=== PATIENT | female | born 1945 | race Caucasian/White ===

== ENCOUNTER 2020-01-02 09:30 | Outpatient (CLI) | payer MEDICARE, SELFPAY ==
--- NOTE | ~2020-01-02 | US_ITS ---
EXAMINATION: US venous doppler [facility] EXAM DATE: 01/02/2020 10:47 INDICATION: Bilateral leg pain. TECHNIQUE: Multiple grayscale, color flow and Doppler images of the lower extremity deep venous syste ms bilaterally were obtained and reviewed. The exam was reviewed on 01/02/2020. Comparison is made to prior examination from 04/15/2009. FINDINGS: Right side: The right common femoral, femoral and profunda veins demonstrate normal color flow, respi ratory variation, augmentation and compressibility. Compressibility, color flow confirmed within the right popliteal, posterior tibial, peroneal, and greater saphenous veins. Right Standing Venous Mapping: reflux seconds duration; vein size. Greater saphenous origin: 0 seconds; 6.1 mm. Greater saphenous mid thigh:------ 0 seconds; 4.5 mm. Greater saphenous below knee:--- 0 seconds; 2.4 mm. Lesser saphenous proximally:------ 0 seconds; 2.8 mm. Lesser saphenous distally: 0 seconds; 2.3 mm. Right popliteal vein did demonstrate 2 seconds of venous reflux. Left side: The left common femoral, femoral and profunda veins demonstrate normal color flow, respira tory variation, augmentation and compressibility. Compressibility, color flow confirmed within the l eft popliteal, posterior tibial, peroneal, and greater saphenous veins. Left Standing Venous Mapping: reflux seconds duration; vein size. Greater saphenous origin: 0 seconds; 7.3 mm. Greater saphenous mid thigh:------ 0 seconds; 7.1 mm. Greater saphenous below knee:--- 1 seconds; 2.9 mm. Lesser saphenous proximally:------ 0 seconds; 1.8 mm. Lesser saphenous distally: 0 seconds; 2.3 mm. IMPRESSION: 1. No lower extremity deep venous thrombosis bilaterally. 2. Left greater saphenous below knee Venous reflux. 3. Right popliteal venous reflux. Reviewed, dictated and finalized at location A.
== END 2020-01-02 09:31 | disposition home or self-care (01) ==
PROVIDERS: PCP Internal Medicine; Visit Provider Internal Medicine Cardiovascular Disease
DX: M79.605 Pain in left leg (principal); M79.604 Pain in right leg
CPT/HCPCS: 93970

== ENCOUNTER 2020-04-10 14:10 | Outpatient (CLI) | payer MEDICARE, SELFPAY ==
--- NOTE | ~2020-04-10 | MM_ITS ---
EXAMINATION: MM screening [facility] BI w jade HISTORY: Screening mammogram TECHNIQUE: Craniocaudal and mediolateral oblique 3-D tomosynthesis images were obtained and synthetic 2-D images were generated. CAD analysis was submitted and interpreted. COMPARISON: 04/08/2019, 04/05/2018, 01/11/2017 BREAST PARENCHYMAL COMPOSITION: There are scattered areas of fibroglandular density. FINDINGS: There is no evidence of suspicious mass, calcification, or architectural distortion to sugg est malignancy in either breast. There has been no suspicious interval change. IMPRESSION: 1. No mammographic evidence of malignancy. 2. Recommend routine screening mammography in one year. BI-RADS Category 1: Negative Reviewed, dictated and finalized at location A. D [employer] PROFESSIONAL
== END 2020-04-10 14:11 | disposition home or self-care (01) ==
LOC: ANHIMG 14:14
PROVIDERS: PCP Family Medicine; Visit Provider Nurse Practitioner
DX: Z12.31 Encounter for screening mammogram for malignant neoplasm of breast (principal)
CPT/HCPCS: 77063; 77067

== ENCOUNTER 2020-06-15 14:58 | Outpatient (CLI) | payer MEDICARE, SELFPAY ==
--- NOTE | ~2020-06-15 | XR_ITS ---
XR lumbar spine 2-3V DATE: 06/15/2020 15:24 INDICATION: Left lower back pain. Left lateral hip pain. TECHNIQUE: AP, lateral, coned lateral lumbosacral views COMPARISON: None FINDINGS: Diffuse osteopenia. There is grade 1 anterolisthesis at L4-5 due to prominent degenerative change at the apophyseal joint s. Moderate degenerative disc disease at L1-2, L2-3. Moderately severe degenerative disc disease at L4-5 and L5-S1. No fracture or bone destruction is evident. The lumbar pedicles are intact. The sacroiliac joints are unremarkable. IMPRESSION: Diffuse osteopenia Multilevel degenerative disc disease, most pronounced at L5-S1 Degenerative change at the apophyseal joints, with associated grade 1 anterolisthesis at L4-5 Reviewed, dictated and finalized at location A. DRIER IMPRESSION: Diffuse osteopenia Multilevel degenerative disc disease, most pronounced at L5-S1 Degenerative change at the apophyseal joints, with associated grade 1 anterolis thesis at L4-5
--- NOTE | ~2020-06-15 | XR_ITS ---
XR hip LT min 2V DATE: 06/15/2020 15:24 INDICATION: Left lateral hip pain TECHNIQUE: AP and lateral views COMPARISON: None FINDINGS: There is joint space narrowing and degenerative spurring of the left hip joint consistent w ith moderately severe left hip osteoarthritis. No fracture or dislocation, avascular necrosis or bone destruction is detected. The pubic symphysis a nd left sacral iliac joint are intact. IMPRESSION: Moderately severe left hip osteoarthritis Reviewed, dictated and finalized at location A. E TENDER
== END 2020-06-15 14:59 | disposition home or self-care (01) ==
LOC: CHSIMG 15:01
PROVIDERS: PCP Family Medicine; Visit Provider Nurse Practitioner Family
DX: M25.552 Pain in left hip (principal); M54.5 Low back pain
CPT/HCPCS: 72100; 73502

== ENCOUNTER 2020-06-16 12:54 | Outpatient (RCR) | payer MEDICARE, SELFPAY ==
--- NOTE | 2020-06-16 15:52 | PTOPEVAL ---
Thank you for referring Narcisa Panchal to [facility].? The patient is scheduled to be seen for therapy? _3___x/week for 12 visits. Please review, sign, date and return this plan of care DAVID. I agree with and certify that the following plan of care is medically necessary. Referring Physician Date Admitting Provider: Attending Provider: Shakila Salomon NP Referring Provider: *PT Outpatient Evaluation Start: 06/16/20 13:02 Freq: Status: Active Protocol: Document 06/16/20 13:03 ACR (Rec: 06/16/20 14:52 [id number]) Therapy Assessment Status Assessment Status Assessment Status Evaluation Evaluation Information Problem Diagnosis L hip pain Onset 04/15/20 Subjective Information Patient states about 2 months Query Text:As Reported By Patient/ ago she started having Family difficulty going from sit to stand where her legs were stiff, but once she got walking she would be okay. She states that she believes her hips are not straight. After awhile she went to the MD and got X-ray which was positive for moderate to severe osteoarthritis. Patient states she walked quite a bit before her hip started to bother her . Other than that, the hip pain has not hindered her quality of life. She states that getting in and out of the car and navigating the stairs is difficult. Patient states the pain wakes her up at night . Prior Level of Function Activity Level (Last 3 Months) Occupation retired Hand Dominance Right Activity of Daily Living Ability Independent Indoor/Home Mobility Independent Community Mobility Independent Stairs Ability Independent Functional Cognition (Planning, Shopping Independent , Taking Medications) Cooking Yes Cleaning Yes Laundry Yes Shopping Yes Driving Yes Pain Assessment Timing of Pain Assessment Timing of Pain Assessment Assessment Pain Scale Pain Scale Used Numeric (1 - 10) Self Report Pain Assessment Left Hip(s) Reported Pain Level 8 Pain Description
--- NOTE | 2020-07-10 11:39 | PTOPEVAL ---
Thank you for referring Narcisa Panchal to [facility].? The patient is scheduled to be seen for therapy? ____x/week for ___ weeks. Please review, sign, date and return this plan of care DAVID. I agree with and certify that the following plan of care is medically necessary. Referring Physician Date Admitting Provider: Attending Provider: Shakila Salomon NP Referring Provider: LydiaPT Outpatient Evaluation Start: 06/16/20 13:02 Freq: Status: Active Protocol: Document 07/10/20 10:57 ACR (Rec: 07/10/20 11:24 ACR [id number]) Therapy Assessment Status Assessment Status Assessment Status Discharge Pain Assessment Timing of Pain Assessment Timing of Pain Assessment Pre-Treatment Pain Scale Pain Scale Used Numeric (1 - 10) Self Report Pain Assessment Left Hip(s) Reported Pain Level 2 Greatest Pain Intensity 4 Pain Score Pain Score 2: Self Report Interventions Used Interventions Used By Clinicians Activity or ADL's,Education, Electrical Stimulation, Exercise,Heat Lower Extremity Range of Motion Hip Range of Motion Left Hip Flexion Range of Motion - Active 115 Hip Abduction Range of Motion - Active 10 Lower Extremity Muscle Strength Testing Hip Strength Left Hip Flexion Strength 4- Good - Hip Extension Strength 4+ Good + Hip Abduction Strength 4+ Good + Right Hip Flexion Strength 4+ Good + Hip Abduction Strength 4+ Good + Hip Adduction Strength 4+ Good + Gait Assessment Gait Assessment Additional Ambulation Comments Patient ambulates with antalgia, decreased trunk rotation, decreased heel strike on the L, and decreased marilin after 500 ft. 6 Minute Walk Total Distance (feet) 1,000 6 Minute Walk Gait Speed Score (feet/ 2.77 second) General Exercise General Exercises Exercise Description -HS stretch x 2 minutes Query Text:Record Sets, Reps, bilateral Resistance, and Position -piriformis stretch x 2 minutes bilateral -hip extension and abduction x 25 bilateral -clamshells x 25 bilateral -tandem stance on foam x 2 minutes bilateral -squats x 20 - bridges x 15 - supine hip abduction x 15 B Modalities Electrical Stimulation Left Hip Stimulation Type Premodulated In Conjunctions With Hot Pack Patient Positio
== END 2020-07-10 13:36 | disposition home or self-care (01) ==
LOC: CHSPT 12:54
PROVIDERS: PCP Nurse Practitioner Family; Visit Provider Nurse Practitioner Family
DX: M25.552 Pain in left hip (principal); M54.30 Sciatica, unspecified side
CPT/HCPCS: 97014; 97110; 97140; 97161; G0283

== ENCOUNTER 2020-08-17 10:29 | Outpatient (CLI) | payer MEDICARE, SELFPAY ==
--- NOTE | ~2020-08-17 | XR_ITS ---
EXAMINATION: XR chest 2V DATE: 08/17/2020 11:14 INDICATION: Atrial fibrillation. Preop. TECHNIQUE: Frontal and lateral views of the chest were obtained. COMPARISON: Chest 2 views 04/15/2009 FINDINGS: There is no pneumonia, pleural effusion, or pneumothorax. Cardiomegaly is noted. IMPRESSION: 1. Cardiomegaly. Reviewed, dictated and finalized at location A. IMPRESSION: 1. Cardiomegaly.
--- NOTE | 2020-08-17 10:35 | ECG_ITS ---
Measurements Intervals [place] Rate: 67 P: [place]: 0 QRS: 102 QRSD: 90 T: 79 QT: 425 QTc: 449 Interpretive Statements ATRIAL FIBRILLATION ANTEROSEPTAL INFARCT, AGE INDETERMINATE BASELINE WANDER- II, III, AVR, AVL, AVF ABNORMAL ECG Electronically Signed On 08-17-2020 11:02:53 CDT by Serjio Valdovinos D.O.
[2020-08-17 10:49] LABS: Basophils Absolute Auto 0.07 K/mm3 (0.00-0.10); Basophils Percent Auto 1.1 % (0.0-1.0); Eosinophils Absolute Auto 0.13 K/mm3 (0.02-0.50); Hematocrit 40.3 % (35.0-42.0); Immature Granulocyte Absolute 0.02 K/mm3 (0.00-0.00); Immature Granulocyte Percent A 0.3 % (0.0-0.0); Lymphocytes Absolute Auto 1.93 K/mm3 (1.10-4.50); Lymphocytes Percent Auto 30.2 % (18.0-42.0); Mean Corpuscular HGB Conc 32.3 g/dL (32.0-36.0); Mean Corpuscular Hemoglobin 30.7 pg (27.0-31.0); Mean Platelet Volume 11.1 fl (9.2-11.8); Monocytes Absolute Auto 0.69 K/mm3 (0.10-0.90); Monocytes Percent Auto 10.8 % (2.0-11.0); Neutrophils Absolute Auto 3.6 K/mm3 (1.7-7.2); Neutrophils Percent Auto 55.6 % (50.0-70.0); Platelet Count Result 184 K/mm3 (150-420); Red Blood Count 4.24 M/mm3 (4.20-5.40); Red Cell Distribution Width 14.1 % (11.6-14.4); White Blood Count 6.4 K/mm3 (4.8-10.8)
[2020-08-17 10:50] LABS: Appearance Urine Clear (Clear); Bilirubin Urine Negative (Negative); Color Urine Yellow (Yellow); Glucose Urine UA Negative (Negative); Ketones Urine Negative (Negative); Leukocyte Esterase Ur Negative LEU/UL (Negative); Nitrate Urine Negative (Negative); Protein Urine Negative (Negative); Urobilinogen Urine 0.2 mg/dL (0.2-1.0); pH Urine 5.5 (5.0-8.0)
[2020-08-17 11:12] LABS: INR 1.2; Prothrombin Time 12.4 Seconds (9.50-12.10)
[2020-08-17 11:21] LABS: Add Urine Microscopic? YES; Blood Urine Trace-Intact (Negative); RBC Urine None seen /hpf (0-2); Squamous Epithelial Cell Urine Rare /hpf (Few); WBC Urine None seen /hpf (0-3)
[2020-08-17 11:22] LABS: Bacteria Urine None seen /hpf
[2020-08-17 12:08] LABS: Alanine Aminotransferase 17 U/L (14-59); Albumin Level 3.7 g/dL (3.4-5.0); Alkaline Phosphatase 89 U/L (46-116); Anion Gap 8 mmol/L (8-16); Aspartate Amino Transferase 15 U/L (15-37); Bilirubin,Total 0.9 mg/dL (0.00-1.00); Blood Urea Nitrogen 19 mg/dL (7-18); Calcium 9.1 mg/dL (8.5-10.1); Carbon Dioxide 27 mmol/L (21-32); Chloride 107 mmol/L (98-108); Cholesterol 113 mg/dL (0-200); Estimated Glomerular Filt Rate 52; Glucose 81 mg/dL (70-99); HDL Direct 52 mg/dL (40-60); LDL Cholesterol Calculated 42 mg/dL (<130); Osmolality Calculated 295 mOsm/kg (285-295); Potassium 4.5 mmol/L (3.5-5.1); Sodium 142 mmol/L (136-145); Total Protein 7.2 g/dL (6.4-8.2); Triglycerides 93 mg/dL (0-150)
== END 2020-08-17 10:30 | disposition home or self-care (01) ==
LOC: CHSLAB 10:35
PROVIDERS: PCP Family Medicine; Visit Provider Nurse Practitioner Family
DX: E78.5 Hyperlipidemia, unspecified (principal); Z01.818 Encounter for other preprocedural examination; I48.20 Chronic atrial fibrillation, unspecified
CPT/HCPCS: 36415; 71046; 80053; 80061; 81001; 85025; 85610; 93005

== ENCOUNTER 2020-09-14 09:43 | Outpatient (CLI) | payer MEDICARE, SELFPAY ==
[2020-09-14 11:03] LABS: Add Urine Microscopic? NO; Appearance Urine Clear (Clear); Bilirubin Urine Negative (Negative); Blood Urine Negative (Negative); Color Urine Straw (Yellow); Glucose Urine UA Negative (Negative); Ketones Urine Negative (Negative); Leukocyte Esterase Ur Negative LEU/UL (Negative); Nitrate Urine Negative (Negative); Protein Urine Negative (Negative); Specific Grav Ur 1.008 (1.001-1.035); Urobilinogen Urine Negative mg/dL (<2.0)
[2020-09-14 11:11] LABS: INR 1.3; Prothrombin Time 16.6 Seconds (11.1-14.7)
[2020-09-14 11:12] LABS: Partial Thromboplastin Time 32.8 SECONDS (22.3-36.8)
[2020-09-14 11:18] LABS: Urine Cotinine NEGATIVE
[2020-09-14 11:28] LABS: Hemoglobin A1C 5.8 % (<5.7)
== END 2020-09-14 09:44 | disposition home or self-care (01) ==
LOC: ANHSURGERY 09:47
PROVIDERS: PCP Family Medicine; Visit Provider Orthopaedic Surgery
DX: M16.12 Unilateral primary osteoarthritis, left hip (principal); Z01.818 Encounter for other preprocedural examination
CPT/HCPCS: 80307; 81003; 83036; 85610; 85730; 86850; 86900; 86901; 87081

== ENCOUNTER → 2020-09-19 03:05 | Outpatient (CLI) | payer MEDICARE, SELFPAY ==
[2020-09-19 19:46] LABS: SARS-CoV-2 RNA PCR Negative
== END ==
PROVIDERS: PCP Family Medicine; Visit Provider Orthopaedic Surgery
DX: Z01.812 Encounter for preprocedural laboratory examination (principal); Z20.822 Contact with and (suspected) exposure to COVID-19
CPT/HCPCS: C9803; U0003; U0005

== ENCOUNTER 2020-09-24 13:51 | Observation (INO) | payer MEDICARE, SELFPAY ==
[2020-09-14 10:16] VITALS: BP 148/70; PULSE 58; RESP 18; TEMP 36.7; O2SAT 96; BMI 29.9
[2020-09-23] VITALS (14 sets, daily range): BP systolic 116–145; BP diastolic 41–67; PULSE 54–80; RESP 10–18; TEMP 35.7–36.6; O2SAT 94–100
--- NOTE | 2020-09-23 06:46 | WPDANESEPPF ---
Anes - Initial Pre Proc Eval Procedure: Operation Date: 09/23/20 07:30 Proposed Procedures p Left Total Hip Arthroplasty - Morro Mitchell MD Date/Time: 09/23/20 06:46 Surgeon: Morro Mitchell MD Pre Op Diagnosis: left hip DJD Patient Data Age: 74 Gender: F Height: 5 ft 6 in Weight: 82.5 kg Last Vital Signs Temp 36.7 C 09/14/20 10:16 Pulse 58 L 09/14/20 10:16 Resp 18 09/14/20 10:16 BP 148/70 H 09/14/20 10:16 Pulse Ox 96 09/14/20 10:16 Allergies Allergy/AdvReac Type Severity Reaction Status Date / Time Sulfa (Sulfonamide Allergy Unknown Hives Verified 09/23/20 06:08 Antibiotics) Sulfonamides Allergy Intermediate Hives Uncoded 09/17/20 10:47 Home Medications Medication Instructions Recorded Confirmed Type cholecalciferol (vitamin D3) 1,250 50,000 unit PO WEEKLY #7 tablet 06/03/20 09/23/20 Rx mcg (50,000 unit) tablet cetirizine 10 mg capsule 10 mg PO DAILY PRN 07/07/20 09/23/20 History zinc 50 mg tablet 50 mg PO DAILY 07/07/20 09/23/20 History magnesium 500 mg tablet 15 mg PO DAILY 07/08/20 09/23/20 History acetaminophen [Tylenol Extra 1,000 mg PO Q6H PRN 09/14/20 09/23/20 History Strength] atorvastatin 20 mg PO HS 09/14/20 09/23/20 History cran-C-B.coag-FOS-L.acid-L.rha 1 cap PO QAM 09/14/20 09/23/20 History [Probiotic Plus and Cranberry] metoprolol tartrate 25 mg PO HS 09/14/20 09/23/20 History ydgfchul-yeo-tyvm-FA-lutein 1 tablet PO QAM 09/14/20 09/23/20 History [Multivitamin Women 50 Plus] omega-3 fatty acids-vitamin E 1 cap QAM 09/14/20 09/23/20 History [Fish Oil] rivaroxaban [Xarelto] 20 mg HS 09/14/20 09/23/20 History Patient hx anesthesia problems: none Family hx anesthesia problems: none PMFSH Past Medical History Medical History Atrial fibrillation, chronic DVT (deep venous thrombosis) Hyperlipidemia Left hip pain Osteoporosis Weight gain Surgical History Surgical History History of hysterectomy Family History Family History Other FH: kidney cancer Heart disease Social History Social History Second hand tobacco smoke exposure: No Alcohol intake: never Substance use: never Substance use type: does not use Gender identity (if verbalized by the patient): Female Spiritual care concerns: No Anes - Eval Final PreProcedure Day of Procedure 09/23/20 06:46 Patient weight: overweight Heart: irregular rhythm Lungs: clear to auscultation Airway: Mallampati scale class II Neurological: alert and oriented Last oral intake: >/= 8 hours ASA classification: III Emergent: no Anesthetic plan: proceed Anesthesia type and monitoring: general ETT and standard monitoring Informed Consent: The patient's anesthetic plan and its attendant risks and benefits were discussed with the patient/family/POA. Questions were solicited and answers provided to the satisfaction of the patient/family/POA.
[2020-09-23] MEDS: ACETAMINOPHEN 500 MG TABLET 1000 MG PO (06:47)
[2020-09-23] MEDS: TRANEXAMIC ACID 1,000MG/ISO100 1,000 MG/100 ML BAG 200 MG IVPB (06:48)
[2020-09-23] MEDS: LACTATED RINGERS 1,000 ML 30 ML IV CONT ×2 (06:52→10:15)
--- NOTE | 2020-09-23 07:26 | WPDHPUPDATE1 ---
History and Physical Update Update Date/Time: 09/23/20 07:26 History and Physical has been reviewed, including an updated exam of the patient. There are NO changes in the patient's condition. Risks, benefits, and alternatives have been discussed and questions answered. Patient agrees to proceed with procedure.
[2020-09-23] MEDS: ceFAZolin 2 GM/D5W 50 ML 2 GM/50 ML BAG IVPB ×2 (07:37→15:33)
--- NOTE | 2020-09-23 10:23 | SUR.PHASEI ---
PORTABLE XRAY DONE AT BEDSIDE OF LEFT HIP.
--- NOTE | 2020-09-23 10:27 | PM.PROC ---
Procedure Note - Detailed Date of procedure: 09/23/20 Pre-op diagnosis: left hip DJD LEFT HIP DJD Post-op diagnosis: same Procedure performed: LEFT REYNA Description of procedure: THE PATIENT WAS TAKEN TO THE OPERATING ROOM IN STABLE CONDITION. SHE WAS PLACED IN THE LATERAL DECUBITUS AND THE LEFT LOWER EXTREMITY WAS PREPPED AND DRAPED IN THE STERILE FASHION. INCISION WAS MADE IN THE POSTERIOR LATERAL SIDE OF THE HIP, DOWN TO THE FASCIA LAYER. THE FASCIA WAS INCISED. THE HIP WAS EXPOSED. THE SHORT EXTERNAL ROTATORS WERE EXPOSED AND THE SCIATIC NERVE WAS VISUALIZED. THE CAPSULE WAS INCISED EXPOSING THE HIP JOINT. THE HIP WAS DISLOCATED. AN OSTEOTOMY WAS MADE TO THE FEMORAL NECK ABOUT 1 CM PROXIMAL TO THE LESSER TROCHANTER. THE ACETABULUM WAS EXPOSED. THERE WAS SEVERE DJD SEEN. THE ACETABULUM WAS REAMED TO 49 MM. A 49 MM TRIAL WAS PLACED IN 35 DEG OF ABDUCTION AND ANTEVERSION WAS IN ALIGNMENT WITH THE TRANS ACETABULAR LIGAMENT. THE FIT WAS EXCELLENT. THE TRIAL WAS REMOVED. A 50 MM BIOMET G7 COMPONENT WAS THEN TAPPED IN TO PLACE IN 35 DEG OF ABDUCTION AND ANTEVERSION IN ALIGNMENT WITH THE TRANSVERSE ACETABULAR LIGAMENT. THE ACETABULAR LINER WAS PLACED AND CHECKED FOR STABILITY. NEXT THE FEMUR WAS PREPARED WITH INITIAL CANAL FINDER THEN SEQUENTIAL BROACHING TILL AN 16 BROACH FIT WELL IN 15 OF ANTE VERSION. A -3 HIGH OFFSET NECK WITH 36 MM HEAD TRIAL WAS PLACED. THE YAHIR TEST WAS EXCELLENT AND THE STABILITY IN FLEXION AND ROTATION WAS EXCELLENT. LEG LENGTHS WERE GROSSLY EQUAL. TRIALS WERE REMOVED. A BIOMET TAPERLOC 16 STEM WAS PLACED WITH A HIGH OFFSET NECK. THE FIT WAS EXCELLENT IN 15 DEG OF ANTEVERSION. A -3 CERAMIC 36 MM FEMORAL HEAD WAS PLACED. THE HIP WAS TRIALED AND THE STABILITY WAS EXCELLENT WERE THE LEG LENGTHS AND THE SCHUK TEST. THE WOUND WAS IRRIGATED WITH STERILE BETADINE AND WATER FOR 3 MIN. THEN WASHED AGAIN. THE CAPSULE AND THE EXTERNAL ROTATORS WERE APPROXIMATED WITH NUMBER 1 VICRYL. THE FASCIA WITH No 2 QUIL AND THE SUB CUTANEOUS LAYER WITH 2-0 ABSORBABLE SUTURE WITH A RUNNING 3-0 SUBCUTICULAR LAYER WELL. DERMABOND WAS PLACED AND STERILE DRESSING WAS APPLIED. PATIENT WAS PLACED BACK ON TO THE SUPINE POSITION AND WAS EXTUBATED. Anesthesia: GETA Surgeon: Morro Mitchell MD Estimated blood loss (mL): 200 Drains: No Complications: No immediate complications Condition: stable Disposition: PACU
[2020-09-23] MEDS: fentaNYL CITRATE INJ (*CRX) 100 MCG/2 ML VIAL 25 MCG IV PUSH (11:09)
[2020-09-23] MEDS: ONDANSETRON INJ 4 MG/2 ML VIAL IV PUSH ×2 (12:08→15:54)
--- NOTE | 2020-09-23 12:15 | ADMGEN ---
This patient, Narcisa Panchal, was admitted to -. Patient/family oriented to hospital policies and general routines including ID bracelet, bed and alarms, visiting hours, pain management, procedures, bathroom and other care routines, personal items, smoking policy, room service/diet, and visiting hours. Information on how to activate the Rapid Response Team has been discussed. Patient/Family are encouraged to report perceived risks to care and to ask questions if they do not understand what they are told or what they should do.
[2020-09-23] MEDS: KCL 20 MEQ/D5/0.45% SOD CHL 1,000 ML 80 ML IV CONT (12:18)
[2020-09-23 13:29] LABS: Hemoglobin 11.7 g/dL (12.0-15.0)
[2020-09-23] MEDS: KETOROLAC 15 MG/ML VIAL (*BKC) IV PUSH ×2 (13:31→18:13)
--- NOTE | 2020-09-23 14:00 | WPDCN ---
Assessment and Plan Assessment and plan (1) Degenerative joint disease of left hip: Qualifiers: Osteoarthritis type: primary Qualified Code(s): M16.12 - Unilateral primary osteoarthritis, left hip Code(s): M16.12 - Unilateral primary osteoarthritis, left hip Status: Acute Assessment and Plan: Postoperative day 0, status post elective left total hip arthroplasty. Wound care and pain control will be deferred to Dr. Mitchell as well as DVT prophylaxis. PT/OT consulted. Fall precautions initiated. Check CBC and BMP in a.m. (2) Chronic atrial fibrillation: Code(s): I48.20 - Chronic atrial fibrillation, unspecified Status: Acute Assessment and Plan: No acute issues with rate or rhythm. Continue metoprolol for rate control. (3) Current use of supervisor intermediates anticoagulation: Code(s): Z79.01 - intermodal dispatcher (current) use of anticoagulants Status: Acute Assessment and Plan: Resume rivaroxaban when okay with Dr. Mitchell. (4) Hypertension: Code(s): I10 - Essential (primary) hypertension Status: Acute Assessment and Plan: Blood pressures were reviewed and they are stable. Resume metoprolol and monitor blood pressures daily. (5) Hyperlipidemia: Code(s): E78.5 - Hyperlipidemia, unspecified Status: Chronic Assessment and Plan: Continue statin and check LFTs in a.m. Additional Plan Thank you for allowing us to participate in this patient's care. Please do not hesitate to contact us with any questions. Supervising physician for this medical consultation is Dr. Aleksandr Zhong. HPI Data of Consult Date/Time: 09/23/20 14:00 Requesting Physician: Morro Mitchell MD Primary Care Provider: Bryce Valdes MD Consult Narrative Reason for consult: Postoperative medical management. Narrative: This is a 74-year-old female with left hip degenerative joint disease status post lack of left total hip arthroplasty whom the hospitalist service has been consulted for management of her medical conditions. In addition to degenerative joint disease her medical history is significant for atrial fibrillation on long-term anticoagulation, hypertension, hyperlipidemia, depression, and history of stroke without residual deficits. She has had pain in that left hip for quite some time, not amenable to conservative outpatient treatment, and thus she elected for replacement today. Her surgery was performed under general anesthesia with no immediate complications documented an estimated blood loss of 200 mL. Postoperatively she has had quite a bit of nausea and some vomiting but was able to hold down clear liquids this evening. She continues to have some mild nausea. Her pain is been pretty well controlled and she has been up to the chair and with a walker and thinks she did pretty well. At the time my evaluation she has no complaints and she specifically denies fever, chills, sweats, chest pain, and shortness of breath. She also denies paresthesias, skin color, and temperature changes distal to the surgical site. On discharge she will return home in her eldest son will be helping her out. Review of Systems Review of Systems: Narrative: Twelve systems were reviewed with pertinent positives and negatives as per HPI. No fever, chills, or sweats. No recent cold or flu symptoms. She denies exposure to those positive for COVID-19. Reports a remote history of DVT. Except as documented, all other systems were reviewed and are negative. [facility] Past Medical History Medical History Cerebrovascular accident (2008) No residual deficit. Chronic atrial fibrillation Current use of supervisor intermediates anticoagulation Degenerative joint disease History of deep venous thrombosis Hyperlipidemia Hypertensi
--- NOTE | 2020-09-23 14:07 | PCOTNOTE ---
OT evaluation attempted. Patient severely nauseated and unable to complete evaluation at this time. Will attempt at later time when patient medically appropriate
[2020-09-23] MEDS: DOCUSATE SODIUM 100 MG CAPSULE PO (16:41)
[2020-09-23] MEDS: METOPROLOL TARTRATE 25 MG TABLET PO (20:26)
[2020-09-23] MEDS: ATORVASTATIN 20 MG TABLET PO (20:26)
[2020-09-23] MEDS: FAMOTIDINE 20 MG TABLET PO (20:26)
[2020-09-24] VITALS (7 sets, daily range): BP systolic 107–142; BP diastolic 47–56; PULSE 59–77; RESP 16–18; TEMP 36.4–37; O2SAT 92–96
--- NOTE | ~2020-09-24 | XR_ITS ---
EXAMINATION: XR hip LT 1V DATE: 09/23/2020 10:27 INDICATION: Total left hip arthroplasty. Postop. TECHNIQUE: A single view of left hip was obtained. COMPARISON: Left hip radiographs 09/17/2020 FINDINGS: There is a total left hip arthroplasty in near-anatomic alignment. No fracture. There is ga s in the soft tissues, consistent with recent surgery. IMPRESSION: 1. Total left hip arthroplasty in near-anatomic alignment. Reviewed, dictated and finalized at location A.
[2020-09-24] MEDS: ceFAZolin 2 GM/D5W 50 ML 2 GM/50 ML BAG IVPB ×2 (00:04→09:19)
[2020-09-24] MEDS: KETOROLAC 15 MG/ML VIAL (*BKC) IV PUSH ×3 (00:40→14:05)
[2020-09-24] MEDS: HYDROcodone/acetaminophen (*CRX) 7.5-325 MG TABLET 1 TAB PO (04:20)
[2020-09-24 05:33] LABS: Basophils Percent Auto 0.4 % (0.2-1.2); Eosinophils Percent Auto 0.1 % (0-4.4); Hemoglobin 10.6 g/dL (12.0-15.0); Immature Granulocyte Absolute 0.03 K/mm3 (0.00-0.031); Immature Granulocyte Percent A 0.3 % (0-0.5); Lymphocytes Absolute Auto 1.65 K/mm3 (0.9-3.2); Lymphocytes Percent Auto 16.1 % (18.3-44.2); Mean Corpuscular HGB Conc 32.1 g/dl (32-36); Mean Corpuscular Hemoglobin 30.6 pg (26-34); Mean Corpuscular Volume 95.4 fl (80-100); Mean Platelet Volume 11.8 fl (7.4-10.4); Monocytes Absolute Auto 1.3 K/mm3 (0.1-0.6); Monocytes Percent Auto 12.4 % (2.6-8.5); Neutrophils Absolute Auto 7.3 K/mm3 (1.3-6.7); Neutrophils Percent Auto 70.7 % (45.5-73.1); Platelet Count Result 135 k/mm3 (150-375); Red Blood Count 3.46 M/mm3 (4.2-5.4); White Blood Count 10.3 K/mm3 (4.5-10.0)
[2020-09-24 05:50] LABS: Alanine Aminotransferase 11 U/L (4-35); Albumin Level 3.2 g/dL (3.5-5.1); Alkaline Phosphatase 57 U/L (38-126); Anion Gap 7 mmol/L (8-16); Aspartate Amino Transferase 26 U/L (14-36); Bilirubin,Total 1.2 mg/dL (0.2-1.3); Blood Urea Nitrogen 16 mg/dL (7-17); Calcium 8.4 mg/dL (8.4-10.2); Carbon Dioxide 23 mmol/L (22-30); Chloride 108 mmol/L (98-107); Estimated CRCL calculation 48 ml/min; Estimated Glomerular Filt Rate 54; Glucose 124 mg/dL (65-105); Magnesium 1.6 mg/dL (1.6-2.3); Potassium 4.2 mmol/L (3.4-5.0); Sodium 138 mmol/L (137-145)
--- NOTE | 2020-09-24 07:57 | WPDANESPN ---
Anes - Prog Note Post-Op Date/Time: 09/24/20 07:57 Cardiovascular status: normal Respiratory status: normal Airway patency: baseline Mental status: baseline Post-Op hydration status: normal Vital Signs: Last Vital Signs Temp 37.0 C 09/24/20 04:15 Pulse 59 L 09/24/20 04:15 Resp 16 09/24/20 04:15 BP 114/47 L 09/24/20 04:15 Pulse Ox 95 09/24/20 04:15 Pain Score (VAS): 07/01 I/O: Intake & Output 09/23/20 09/23/20 09/24/20 15:59 23:59 07:59 Intake Total 2049 290 1250 Output Total 800 350 Balance 2050 -510 900 Laboratory Tests 09/24/20 04:44 09/24/20 04:44 09/23/20 09/24/20 09/24/20 13:07 04:44 04:44 WBC 10.3 H RBC 3.46 L Hgb 11.7 L 10.6 L Hct 36.0 L 33.0 L MCV 95.4 MCH 30.6 MCHC 32.1 RDW 14.0 Plt Count 135 L MPV 11.8 H Immature Gran % (Auto) 0.3 Neut % (Auto) 70.7 Lymph % (Auto) 16.1 L [place] % (Auto) 12.4 H Eos % (Auto) 0.1 Baso % (Auto) 0.4 Lymph # (Auto) 1.65 [place] # (Auto) 1.3 H Eos # (Auto) 0.0 Baso # (Auto) 0.0 Abs Immat Gran (auto) 0.03 Absolute Neuts (auto) 7.3 H Absolute Nucleated RBC 0.0 Nucleated RBC % 0.0 Sodium 138 Potassium 4.2 Chloride 108 H Carbon Dioxide 23 Anion Gap 7 L BUN 16 Creatinine 1.00 Estim Creat Clear Calc 48 Estimated GFR 54 L Glucose 124 H Calcium 8.4 Magnesium 1.6 Total Bilirubin 1.2 Direct Bilirubin 0.0 AST 26 ALT 11 Alkaline Phosphatase 57 Total Protein 6.0 L Albumin 3.2 L Post-procedural complaints: nausea and vomiting Patient Feedback: Patient satisfied with anesthetic care.
[2020-09-24] MEDS: ONDANSETRON INJ 4 MG/2 ML VIAL IV PUSH ×2 (09:16→14:05)
[2020-09-24] MEDS: DOCUSATE SODIUM 100 MG CAPSULE PO ×2 (09:19→17:03)
[2020-09-24] MEDS: ZINC SULFATE 220 MG CAPSULE PO (09:19)
[2020-09-24] MEDS: FAMOTIDINE 20 MG TABLET PO ×2 (09:19→20:27)
--- NOTE | 2020-09-24 09:20 | PM.PNORT ---
Progress Note: A&P Assessment and Plan (1) S/P total hip arthroplasty: Qualifiers: Laterality: left Qualified Code(s): Z96.642 - Presence of left artificial hip joint Code(s): Z96.649 - Presence of unspecified artificial hip joint Status: Acute Assessment and Plan: POD #1: Left REYNA Continue PT/OT. WBAT. Walker. Pain control. Ice lateral hip. Continue DVT prophylaxis. SCDs. Incentive Spirometry. Monitor dressing. Change prior to discharge. Dispo: Home with Home Health pending progress with PT/OT. (2) Nausea: Code(s): R11.0 - Nausea Status: Acute Assessment and Plan: Antiemetic PRN Subjective Subjective Date/Time Seen: 09/24/20 09:20 POD #1: Left REYNA Complaints of some nausea. Decreased appetite. Pain well controlled. Review of Systems Constitutional: Constitutional: Denies chills, Denies fatigue, Denies fever(s), Denies night sweats and Denies weakness Cardiovascular: Cardiovascular: Denies chest pain, Denies lightheadedness, Denies palpitations and Denies dyspnea Respiratory: Respiratory: Denies cough, Denies dyspnea and Denies wheezing Gastrointestinal: Gastrointestinal: Denies abdominal pain, Denies diarrhea, Reports nausea and Denies vomiting Musculoskeletal: Musculoskeletal: Reports arthralgias (left hip ), Reports joint swelling (left hip ) and Denies numbness Neurologic: Denies numbness and Denies weakness Endocrine: Endocrine: Denies fatigue and Denies palpitations Allergic/Immunologic: Allergic/Immunologic: Denies wheezing Exam Const: General: comfortable and no acute distress Resp: Effort & Inspection: normal respiratory effort Cardio: Rate: regular rate Rhythm: regular rhythm GI: Inspection: non-distended Skin: General skin exam: normal color Wounds: wounds noted (incision left hip C/D/I ) Extrem: Right lower extremity: normal to inspection, full ROM and normal capillary refill Left lower extremity: hip/thigh Details: tenderness Location: of the hip Location: laterally and anteriorly, swelling (thigh soft ) Location: of the hip (lateral. ), abnormal ROM (limitations with internal/external rotation and flexion/extension due to recent surgical intervention ) and other (incision lateral hip c/d/i. ), knee Details: normal to inspection and normal ROM; no tenderness and no swelling, lower leg (Negative Zechariah's Sign ) Details: no edema, ankle (+ankle dorsiflexion/plantarflexion ) Details: normal to inspection, no edema and normal ROM; no tenderness, no swelling and no warmth and foot Details: normal capillary refill, toes with normal ROM, vascular exam Details: dorsalis pedis pulse present and motor-sensory exam light-touch normal in all toes; no tenderness, no ecchymosis and no crepitus Psych: Mental Status: mental status grossly normal Affect: normal affect Objective Data Vital Signs Vital Signs: Vital Signs - 24 hr 09/23/20 10:15 09/23/20 10:30 09/23/20 10:45 Temperature 36.3 C L Pulse Rate 80 69 66 Respiratory Rate 10 L 16 16 Blood Pressure 125/67 127/63 145/46 H Pulse Oximetry 100 100 100 09/23/20 11:00 09/23/20 11:15 09/23/20 11:30 Temperature 36.1 C L Pulse Rate 58 L 65 62 Respiratory Rate 16 16 16 Blood Pressure 134/55 L 130/49 L 131/46 L Pulse Oximetry 95 94 94 09/23/20 11:45 09/23/20 12:15 09/23/20 12:30 Temperature 35.9 C L 35.7 C L Pulse Rate 54 L 55 L 60 Respiratory Rate 16 18 18 Blood Pressure 116/55 L 140/45 L 141/41 H Pulse Oximetry 98 100 98 09/23/20 13:00 09/23/20 14:00 09/23/20 20:15 Temperature 35.9 C L 35.8 C L 36.6 C Pulse Rate 79 56 L 61 Respiratory Rate 18 18 16 Blood Pressure 135/50 L 127/41 L 130/42 L Pulse Oximetry 96 97 95 09/23/20 20:26 09/24/20 00:15 09/24/20 04:15 Temperature 36.4 C L 37.0 C Pulse Rate 78 64 59 L Respiratory Rate 18 16 Blood Pressure 132/49 L 114/47 L Pulse Oximetry 96 95 09/24/20 08:15 Temperature 36.6 C Pulse Rate 75 Respiratory R
--- NOTE | 2020-09-24 12:40 | P.PNIM_ITS ---
Progress Note: A&P Assessment and Plan (1) Degenerative joint disease of left hip: Qualifiers: Osteoarthritis type: primary Qualified Code(s): M16.12 - Unilateral primary osteoarthritis, left hip Code(s): M16.12 - Unilateral primary osteoarthritis, left hip Status: Acute Assessment and Plan: * Postoperative day 1 status post elective left total hip arthroplasty. * Wound care and pain control will be deferred to Dr. Mitchell as well as DVT prophylaxis. * PT/OT consulted. . * Fall precautions initiated. * Check CBC and BMP in a.m. (2) Chronic atrial fibrillation: Code(s): I48.20 - Chronic atrial fibrillation, unspecified Status: Acute Assessment and Plan: * No acute issues with rate or rhythm. * Continue metoprolol 25mg PO daily for rate control. (3) Current use of buttermaker helper anticoagulation: Code(s): Z79.01 - shelter (current) use of anticoagulants Status: Acute Assessment and Plan: * Resume rivaroxaban 20mg PO q12hr per Dr. Mitchell (4) Hypertension: Code(s): I10 - Essential (primary) hypertension Status: Acute Assessment and Plan: * Blood pressures are stable 107/50 * Resume metoprolol 25mg PO Daily * Trend blood pressures * Adjust medications as needed (5) Hyperlipidemia: Code(s): E78.5 - Hyperlipidemia, unspecified Status: Chronic Assessment and Plan: * Continue statin * Labs are stable (6) Nausea and vomiting: Code(s): R11.2 - Nausea with vomiting, unspecified Status: Acute Assessment and Plan: * Patient is having nausea and vomiting * Worse with eating * When she gets her pain medications she stated it got worse * Will add reglan 10mg Q6hr * Rotate with Zofran 4mg IV Q6hr Additional Plan Thank you for allowing us to participate in this patient's care. Please do not hesitate to contact us with any questions. Supervising physician for this medical consultation is Dr. Aleksandr Zhong. Time Spent With Patient Time with patient: 25 - 35 minutes Subjective Date/time seen: 09/24/20 12:40 Patient is 74-year-old female with a past medical history of hyperlipidemia, CVA, DVT who was scheduled with Dr. Mitchell for a left total hip replacement. Today patient is feeling better however she is still extremely nauseated. She has been trying to eat something but gets nauseated and vomits. She stated that her pain is comfortable when she is sitting and not doing much however when she is up and about it gets worse, then she takes her pain medicine, then she vomits. Patient stated that she has not had a bowel movement however she feels like that because she is not taking p.o. patient denies having shortness of breath, chest pain, abdominal pain, numbness tingling, headache, weakness, dizziness, lightheadedness, fatigue, or syncope. Patient all in all looks okay. I wonder if some of his nausea vomiting is coming for the pain medicine. I will add Reglan if her QT interval is okay. Review of Systems Review of Systems: All systems reviewed & are unremarkable except as noted in HPI and below Exam Const: General: cooperative, healthy appearing, no acute distress, well developed, alert, awake and uncomfortable Nutritional Appearance: average body habitus and well nourished Orientation/
--- NOTE | 2020-09-24 12:40 | PM.IMPN ---
Progress Note: A&P Assessment and Plan (1) Degenerative joint disease of left hip: Qualifiers: Osteoarthritis type: primary Qualified Code(s): M16.12 - Unilateral primary osteoarthritis, left hip Code(s): M16.12 - Unilateral primary osteoarthritis, left hip Status: Acute Assessment and Plan: Postoperative day 1 status post elective left total hip arthroplasty. Wound care and pain control will be deferred to Dr. Mitchell as well as DVT prophylaxis. PT/OT consulted. . Fall precautions initiated. Check CBC and BMP in a.m. (2) Chronic atrial fibrillation: Code(s): I48.20 - Chronic atrial fibrillation, unspecified Status: Acute Assessment and Plan: No acute issues with rate or rhythm. Continue metoprolol 25mg PO daily for rate control. (3) Current use of retirement anticoagulation: Code(s): Z79.01 - director long term care (current) use of anticoagulants Status: Acute Assessment and Plan: Resume rivaroxaban 20mg PO q12hr per Dr. Mitchell (4) Hypertension: Code(s): I10 - Essential (primary) hypertension Status: Acute Assessment and Plan: Blood pressures are stable 107/50 Resume metoprolol 25mg PO Daily Trend blood pressures Adjust medications as needed (5) Hyperlipidemia: Code(s): E78.5 - Hyperlipidemia, unspecified Status: Chronic Assessment and Plan: Continue statin Labs are stable (6) Nausea and vomiting: Code(s): R11.2 - Nausea with vomiting, unspecified Status: Acute Assessment and Plan: Patient is having nausea and vomiting Worse with eating When she gets her pain medications she stated it got worse Will add reglan 10mg Q6hr Rotate with Zofran 4mg IV Q6hr Additional Plan Thank you for allowing us to participate in this patient's care. Please do not hesitate to contact us with any questions. Supervising physician for this medical consultation is Dr. Aleksandr Zhong. Time Spent With Patient Time with patient: 25 - 35 minutes Subjective Date/time seen: 09/24/20 12:40 Patient is 74-year-old female with a past medical history of hyperlipidemia, CVA, DVT who was scheduled with Dr. Mitchell for a left total hip replacement. Today patient is feeling better however she is still extremely nauseated. She has been trying to eat something but gets nauseated and vomits. She stated that her pain is comfortable when she is sitting and not doing much however when she is up and about it gets worse, then she takes her pain medicine, then she vomits. Patient stated that she has not had a bowel movement however she feels like that because she is not taking p.o. patient denies having shortness of breath, chest pain, abdominal pain, numbness tingling, headache, weakness, dizziness, lightheadedness, fatigue, or syncope. Patient all in all looks okay. I wonder if some of his nausea vomiting is coming for the pain medicine. I will add Reglan if her QT interval is okay. Review of Systems Review of Systems: All systems reviewed & are unremarkable except as noted in HPI and below Exam Const: General: cooperative, healthy appearing, no acute distress, well developed, alert, awake and uncomfortable Nutritional Appearance: average body habitus and well nourished Orientation/consciousness: patient oriented x3 Limitations: no limitations HENMT: Head: normal to inspection Ears: hearing grossly normal bilaterally General nose exam: Normal external nose present and Normal nasal mucous membranes and turbinates present Face and sinus: normal facial exam Mouth: Yes Normal oral and palatal mucosa present, Yes lip normal and Yes tongue normal Teeth and gingiva: abnormal tooth and associated gingiva and poor dentition Eyes: General: appearance normal, b
[2020-09-24] MEDS: RIVAROXABAN 20 MG TABLET BY MOUTH (17:03)
[2020-09-24] MEDS: ATORVASTATIN 20 MG TABLET PO (20:27)
[2020-09-24] MEDS: METOPROLOL TARTRATE 25 MG TABLET PO (20:27)
[2020-09-25 05:28] VITALS: BP 136/56; PULSE 71; RESP 20; TEMP 36.8; O2SAT 92
[2020-09-25 05:34] LABS: Hematocrit 31.5 % (37.0-47.0); Hemoglobin 10.4 g/dL (12.0-15.0); Immature Platelet Fraction Pct 5.8 % (0.9-11.2); Mean Corpuscular Hemoglobin 31.7 pg (26-34); Mean Platelet Volume 11.4 fl (7.4-10.4); Platelet Count Result 114 k/mm3 (150-375); Red Blood Count 3.28 M/mm3 (4.2-5.4); Red Cell Distribution Width 14.1 % (11.5-14.5); White Blood Count 11.6 K/mm3 (4.5-10.0)
[2020-09-25 05:55] LABS: Alanine Aminotransferase 8 U/L (4-35); Albumin Level 3.2 g/dL (3.5-5.1); Alkaline Phosphatase 62 U/L (38-126); Anion Gap 9 mmol/L (8-16); Aspartate Amino Transferase 28 U/L (14-36); Bilirubin,Total 1.4 mg/dL (0.2-1.3); Blood Urea Nitrogen 13 mg/dL (7-17); Calcium 8.4 mg/dL (8.4-10.2); Carbon Dioxide 22 mmol/L (22-30); Chloride 105 mmol/L (98-107); Estimated CRCL calculation 53 ml/min; Estimated Glomerular Filt Rate > 60; Glucose 107 mg/dL (65-105); Sodium 136 mmol/L (137-145)
[2020-09-25] MEDS: ZINC SULFATE 220 MG CAPSULE PO (08:12)
[2020-09-25] MEDS: DOCUSATE SODIUM 100 MG CAPSULE PO (08:12)
[2020-09-25] MEDS: FAMOTIDINE 20 MG TABLET PO (08:12)
[2020-09-25] MEDS: HYDROcodone/acetaminophen (*CRX) 7.5-325 MG TABLET 1 TAB PO (08:14)
--- NOTE | 2020-09-25 10:07 | PM.PNORT ---
Progress Note: A&P Assessment and Plan (1) S/P total hip arthroplasty: Qualifiers: Laterality: left Qualified Code(s): Z96.642 - Presence of left artificial hip joint Code(s): Z96.649 - Presence of unspecified artificial hip joint Status: Acute Assessment and Plan: POD #2: Left REYNA Continue PT/OT. WBAT. Walker. HIGH FALL RISK. Pain control. Ice lateral hip. Continue DVT prophylaxis. SCDs. Incentive Spirometry. Monitor dressing. Change prior to discharge. Dispo: Home with Home Health likely today pending medial clearance and PT/OT clearance. (2) Nausea: Code(s): R11.0 - Nausea Status: Acute Assessment and Plan: Antiemetic PRN. Will give prescription for home use as well. Subjective Subjective Date/Time Seen: 09/25/20 10:07 POD #2: Left REYNA Improvement in nausea. Reports that she also does not like the food. Pain well controlled. Feeling better in comparison to yesterday. Review of Systems Constitutional: Constitutional: Denies chills, Denies fatigue, Denies fever(s), Denies night sweats and Denies weakness Cardiovascular: Cardiovascular: Denies chest pain, Denies lightheadedness, Denies palpitations and Denies dyspnea Respiratory: Respiratory: Denies cough, Denies dyspnea and Denies wheezing Gastrointestinal: Gastrointestinal: Denies abdominal pain, Denies diarrhea, Reports nausea and Denies vomiting Musculoskeletal: Musculoskeletal: Reports arthralgias (left hip ), Reports joint swelling (left hip ) and Denies numbness Neurologic: Denies numbness and Denies weakness Endocrine: Endocrine: Denies fatigue and Denies palpitations Allergic/Immunologic: Allergic/Immunologic: Denies wheezing Exam Const: General: comfortable and no acute distress Resp: Effort & Inspection: normal respiratory effort Cardio: Rate: regular rate Rhythm: regular rhythm GI: Inspection: non-distended Skin: General skin exam: normal color Wounds: wounds noted (incision left hip C/D/I ) Extrem: Right lower extremity: normal to inspection, full ROM and normal capillary refill Left lower extremity: hip/thigh Details: tenderness Location: of the hip Location: laterally and anteriorly, swelling (thigh soft ) Location: of the hip (lateral. ), abnormal ROM (limitations with internal/external rotation and flexion/extension due to recent surgical intervention ) and other (incision lateral hip c/d/i. ), knee Details: normal to inspection and normal ROM; no tenderness and no swelling, lower leg (Negative Zechariah's Sign ) Details: no edema, ankle (+ankle dorsiflexion/plantarflexion ) Details: normal to inspection, no edema and normal ROM; no tenderness, no swelling and no warmth and foot Details: normal capillary refill, toes with normal ROM, vascular exam Details: dorsalis pedis pulse present and motor-sensory exam light-touch normal in all toes; no tenderness, no ecchymosis and no crepitus Psych: Mental Status: mental status grossly normal Affect: normal affect Objective Data Vital Signs Vital Signs: Vital Signs - 24 hr 09/24/20 14:00 09/24/20 20:27 09/24/20 21:09 Temperature 36.7 C 36.8 C Pulse Rate 62 77 77 Respiratory Rate 18 18 Blood Pressure 133/47 L 142/56 H Pulse Oximetry 95 96 09/24/20 22:47 09/25/20 05:28 Temperature 36.8 C Pulse Rate 71 Respiratory Rate 20 Blood Pressure 136/56 L Pulse Oximetry 96 92 Intake/Output Intake/Output: Intake & Output 09/22/20 09/23/20 09/24/20 09/25/20 23:59 23:59 23:59 23:59 Intake Total 2440 1840 700 Output Total 800 750 600 Balance 1640 1090 100 Meds/Results Medications: Active Medications Generic Name Dose Route Start Last Admin Trade Name Freq PRN Reason Stop Dose Admin Acetaminophen 650 mg 09/23/20 10:30 Acetaminophen 325 Mg Tablet PO Q6H PRN Mild Pain (1-3) or Fever Hydrocodone Bitart/Acetaminophen 1 tab 09/23/20 10:30 09/25/20 08:14 Hydrocodone/Acetaminophen (*Crx) 7.5-32
--- NOTE | 2020-09-25 14:22 | P.PNIM_ITS ---
Progress Note: A&P Assessment and Plan (1) Degenerative joint disease of left hip: Qualifiers: Osteoarthritis type: primary Qualified Code(s): M16.12 - Unilateral primary osteoarthritis, left hip Code(s): M16.12 - Unilateral primary osteoarthritis, left hip Status: Acute Assessment and Plan: * Postoperative day 2 status post elective left total hip arthroplasty. * Wound care and pain control will be deferred to Dr. Mitchell as well as DVT prophylaxis. * PT/OT consulted. . * Fall precautions initiated. * Check CBC and BMP in a.m. (2) Chronic atrial fibrillation: Code(s): I48.20 - Chronic atrial fibrillation, unspecified Status: Acute Assessment and Plan: * No acute issues with rate or rhythm. * Continue metoprolol 25mg PO daily for rate control. (3) Current use of geographic information scientist anticoagulation: Code(s): Z79.01 - longterm (current) use of anticoagulants Status: Acute Assessment and Plan: * Resume rivaroxaban 20mg PO q12hr per Dr. Mitchell (4) Hypertension: Code(s): I10 - Essential (primary) hypertension Status: Acute Assessment and Plan: * Blood pressures are stable 107/50 * Resume metoprolol 25mg PO Daily * Trend blood pressures * Adjust medications as needed (5) Hyperlipidemia: Code(s): E78.5 - Hyperlipidemia, unspecified Status: Chronic Assessment and Plan: * Continue statin * Labs are stable (6) Nausea and vomiting: Code(s): R11.2 - Nausea with vomiting, unspecified Status: Acute Assessment and Plan: * Patient is having nausea and vomiting * Worse with eating * When she gets her pain medications she stated it got worse * Will add reglan 10mg Q6hr * Rotate with Zofran 4mg IV Q6hr Additional Plan Thank you for allowing us to participate in this patient's care. Please do not hesitate to contact us with any questions. Supervising physician for this medical consultation is Dr. Aleksandr Zhong. Subjective Date/time seen: 09/25/20 14:00 Patient is 74-year-old female with a past medical history of hyperlipidemia, CVA, DVT who was scheduled with Dr. Mitchell for a left total hip replacement. Today patient has had one episode of nausea which has been resolved. She will be going home with nausea medications. Patient was on the phone and rushed me through my exam, however, she did not have any complaints at this time. Patient denies chest pain, shortness of breath, vomiting,abdominal pain, constipation, diarrhea, urinary dysfunction, pain or burning with urinating, headache, dizziness, confusion, falls, syncope, numbness and tingling, or lightheadedness weakness or fatigue. Patient is supposed to be discharged today. Review of Systems Review of Systems: All systems reviewed & are unremarkable except as noted in HPI and below Exam Const: General: cooperative, healthy appearing, no acute distress, well developed, alert, awake and uncomfortable Nutritional Appearance: average body habitus and well nourished Orientation/consciousness: patient oriented x3 Limitations: no limitations HENMT: Head: normal to inspection Ears: hearing grossly normal bilaterally General nose exam: Normal external nose present and Normal nasal mucous membranes and turbinates present
--- NOTE | 2020-09-25 14:22 | PM.IMPN ---
Progress Note: A&P Assessment and Plan (1) Degenerative joint disease of left hip: Qualifiers: Osteoarthritis type: primary Qualified Code(s): M16.12 - Unilateral primary osteoarthritis, left hip Code(s): M16.12 - Unilateral primary osteoarthritis, left hip Status: Acute Assessment and Plan: Postoperative day 2 status post elective left total hip arthroplasty. Wound care and pain control will be deferred to Dr. Mitchell as well as DVT prophylaxis. PT/OT consulted. . Fall precautions initiated. Check CBC and BMP in a.m. (2) Chronic atrial fibrillation: Code(s): I48.20 - Chronic atrial fibrillation, unspecified Status: Acute Assessment and Plan: No acute issues with rate or rhythm. Continue metoprolol 25mg PO daily for rate control. (3) Current use of halfway anticoagulation: Code(s): Z79.01 - supervisor intermediates (current) use of anticoagulants Status: Acute Assessment and Plan: Resume rivaroxaban 20mg PO q12hr per Dr. Mitchell (4) Hypertension: Code(s): I10 - Essential (primary) hypertension Status: Acute Assessment and Plan: Blood pressures are stable 107/50 Resume metoprolol 25mg PO Daily Trend blood pressures Adjust medications as needed (5) Hyperlipidemia: Code(s): E78.5 - Hyperlipidemia, unspecified Status: Chronic Assessment and Plan: Continue statin Labs are stable (6) Nausea and vomiting: Code(s): R11.2 - Nausea with vomiting, unspecified Status: Acute Assessment and Plan: Patient is having nausea and vomiting Worse with eating When she gets her pain medications she stated it got worse Will add reglan 10mg Q6hr Rotate with Zofran 4mg IV Q6hr Additional Plan Thank you for allowing us to participate in this patient's care. Please do not hesitate to contact us with any questions. Supervising physician for this medical consultation is Dr. Aleksandr Zhong. Subjective Date/time seen: 09/25/20 14:00 Patient is 74-year-old female with a past medical history of hyperlipidemia, CVA, DVT who was scheduled with Dr. Mitchell for a left total hip replacement. Today patient has had one episode of nausea which has been resolved. She will be going home with nausea medications. Patient was on the phone and rushed me through my exam, however, she did not have any complaints at this time. Patient denies chest pain, shortness of breath, vomiting,abdominal pain, constipation, diarrhea, urinary dysfunction, pain or burning with urinating, headache, dizziness, confusion, falls, syncope, numbness and tingling, or lightheadedness weakness or fatigue. Patient is supposed to be discharged today. Review of Systems Review of Systems: All systems reviewed & are unremarkable except as noted in HPI and below Exam Const: General: cooperative, healthy appearing, no acute distress, well developed, alert, awake and uncomfortable Nutritional Appearance: average body habitus and well nourished Orientation/consciousness: patient oriented x3 Limitations: no limitations HENMT: Head: normal to inspection Ears: hearing grossly normal bilaterally General nose exam: Normal external nose present and Normal nasal mucous membranes and turbinates present Face and sinus: normal facial exam Mouth: Yes Normal oral and palatal mucosa present, Yes lip normal and Yes tongue normal Teeth and gingiva: abnormal tooth and associated gingiva and poor dentition Eyes: General: appearance normal, both eyes and all related structures Neck: Neck: normal visual inspection, full ROM, trachea midline and supple Chest: Chest palpation & inspection: normal inspection of the chest Resp: Effort & Inspection: normal respiratory effort and able to speak in complete
--- NOTE | 2020-09-25 15:13 | PM.DS ---
DS: Admitting Diagnosis Admitting Diagnosis Admitting Diagnosis: Left total hip arthroplasty DS: Discharge Diagnosis Discharge Diagnosis (1) S/P total hip arthroplasty: Qualifiers: Laterality: left Qualified Code(s): Z96.642 - Presence of left artificial hip joint Code(s): Z96.649 - Presence of unspecified artificial hip joint Status: Acute Assessment and Plan: POD #2: Left REYNA Continue PT/OT. WBAT. Walker. HIGH FALL RISK. Pain control. Ice lateral hip. Continue DVT prophylaxis. SCDs. Incentive Spirometry. Monitor dressing. Change prior to discharge. Dispo: Home with Home Health likely today pending medial clearance and PT/OT clearance. (2) Nausea: Code(s): R11.0 - Nausea Status: Acute Assessment and Plan: Antiemetic PRN. Will give prescription for home use as well. DS: Summary Hospital Course Reason for hospitalization: left total hip arthroplasty Hospital Course: 74-year-old female admitted status post left total hip arthroplasty for postoperative medical management, pain control and mobilization with physical and occupational therapy. Patient had difficulty on postop day 1 with nausea and vomiting and slow progression with PT/ OT. She showed good improvement on postop day 2 and was able to climb stairs and passed all necessary guidelines for discharge by PT and OT. She has been cleared by the Medicine team as well. She does report improvement in nausea and vomiting. We will send her home with an antiemetic. She will also be discharged home with resuming her previously ordered Xarelto for history of stroke which will double as DVT prophylaxis for her postop total hip arthroplasty. Patient will go home with home health. Her sons are living with her and will assist her as well. Patient follow-up in the outpatient orthopedic clinic in approximately 3 weeks for re-evaluation. Status at Discharge Functional status at discharge: uses cane/walker Overall status at discharge: patient is progressing back to baseline Time Spent with Patient Time attestation: Total time spent providing and/or coordinating discharge services: Exam Const: General: comfortable and no acute distress Resp: Effort & Inspection: normal respiratory effort Cardio: Rate: regular rate Rhythm: regular rhythm GI: Inspection: non-distended Skin: General skin exam: normal color Wounds: wounds noted (incision left hip C/D/I ) Extrem: Right lower extremity: normal to inspection, full ROM and normal capillary refill Left lower extremity: hip/thigh Details: tenderness Location: of the hip Location: laterally and anteriorly, swelling (thigh soft ) Location: of the hip (lateral. ), abnormal ROM (limitations with internal/external rotation and flexion/extension due to recent surgical intervention ) and other (incision lateral hip c/d/i. ), knee Details: normal to inspection and normal ROM; no tenderness and no swelling, lower leg (Negative Zechariah's Sign ) Details: no edema, ankle (+ankle dorsiflexion/plantarflexion ) Details: normal to inspection, no edema and normal ROM; no tenderness, no swelling and no warmth and foot Details: normal capillary refill, toes with normal ROM, vascular exam Details: dorsalis pedis pulse present and motor-sensory exam light-touch normal in all toes; no tenderness, no ecchymosis and no crepitus Psych: Mental Status: mental status grossly normal Affect: normal affect DS: Data Data Completed and Pending Labs on day of discharge: Labs from last 24 hours 09/25/20 09/25/20 05:20 05:20 WBC 11.6 H RBC 3.28 L Hgb 10.4 L Hct 31.5 L MCV 96.0 MCH 31.7 MCHC 33.0 RDW 14.1 Plt Count 114 L MPV 11.4 H % Immature Plt Fraction 5.8 Sodium 136 L Potassium 4.0 Chloride 105 Carbon Dioxide 22 Anion Gap 9 BUN 13 Creatinine 0.90 Estim Creat Clear Calc 53 Estimated GFR > 60 Glucose 107 H Calcium 8.4 Total Bilirubin 1.4 H AST 28
== END 2020-09-25 16:20 | disposition home health service (06) ==
LOC: ANHSURGERY 13:54 → ANH2MED 13:54
PROVIDERS: Anesthesiology; Nurse Practitioner; Physician Assistant; Admitting Provider Orthopaedic Surgery; PCP Family Medicine; Visit Provider Orthopaedic Surgery
PROC: (CPT 27130; principal; 2020-09-23 07:30)
DX: M16.12 Unilateral primary osteoarthritis, left hip (principal); E78.5 Hyperlipidemia, unspecified; I10 Essential (primary) hypertension; I48.91 Unspecified atrial fibrillation; R11.2 Nausea with vomiting, unspecified; Z79.01 Long term (current) use of anticoagulants; Z86.73 Personal history of transient ischemic attack (TIA), and cerebral infarction without residual deficits
CPT/HCPCS: 27130; 36415; 73501; 80048; 80053; 80076; 83735; 85014; 85018; 85025; 85027; 85055; 85610; 96374; 96375; 97110; 97116; 97161; 97165; 97530; 97535; A9270; C1776; G0378; J0171; J0330; J0690; J1885; J2250; J2270; J2405; J2704; J2710; J2795; J3010; J3480; J7120

== ENCOUNTER 2020-10-20 15:08 | Outpatient (RCR) | payer MEDICARE, SELFPAY ==
--- NOTE | 2020-10-20 16:22 | PTOPEVAL ---
Thank you for referring Narcisa Panchal to [facility].? The patient is scheduled to be seen for therapy? ____x/week for ___ weeks. Please review, sign, date and return this plan of care DAVID. I agree with and certify that the following plan of care is medically necessary. Referring Physician Date Admitting Provider: Attending Provider: Morro Mitchell MD Referring Provider: *PT Outpatient Evaluation Start: 10/20/20 15:09 Freq: Status: Active Protocol: Document 10/20/20 15:00 [facility] (Rec: 10/20/20 16:20 [facility] [id number]) Therapy Assessment Status Assessment Status Assessment Status Evaluation Outpatient Past Medical History Neurological History Hx Cerebrovascular Accident (CVA) Yes: 2008 NO DEFICITS Cardiovascular History Hx Atrial Fibrillation Yes Hx Hypercholesterolemia Yes Hx Hypertension Yes Hx Other Cardiac Disorders Yes: 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 CAICEDO LAST VISIT 10/2019 Respiratory History Hx Respiratory Disorders No Significant History Gastrointestinal History Hx Gastrointestinal Disorders No Significant History Genitourinary History Hx Genitourinary Disorders No Significant History Musculoskeletal History Hx Arthritis Yes: HIPS Hx Crutches or Walker Use Yes: HAS WALKER FOR POST OP Query Text:If Yes, Enter Crutches, USE Walker, or Both in the Comment Hematological History Hx Hematological Disorders No Significant History Endocrine History Hx Endocrine Disorders No Significant History HEENT History Hx Tonsillectomy Yes Hx Sinus Problems Yes: SEASONAL ALLERGIES Hx Other HEENT Disorders Yes: GLASSES/CONTACTS, [place]- BILATEAL HEARSING AIDS, 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 Integumentary History Hx Skin Disorders No Significant History Reproductive History Hx Hysterectomy Yes: 2015 Hx Other Reproductive Disorders Yes: LT BREAST LUMPECTOMY= BENIGN Psychosocial History Hx Psychiatric Disorders No Significant History Pain History Has Past Pain Affected Your Daily Life Yes: LT HIP Anesthesia History Hx Anesthesia Reactions No Significant History Evaluation Information Problem Diagnosis L REYNA Onset 09/23/20 Additional Evaluation Detail LEFS= 86% decreased functional ability Subjective Information Narcisa Panchal is a 75 year Query Text:As Reported By Patient/ old female who reports L hip Family pain on this date s/p a L posterolateral REYNA. 6 Steps to enter home; lives at home
--- NOTE | 2020-12-03 17:30 | PTOPEVAL ---
Thank you for referring Narcisa Panchal to [facility].? The patient is scheduled to be seen for therapy? ____x/week for ___ weeks. Please review, sign, date and return this plan of care DAVID. I agree with and certify that the following plan of care is medically necessary. Referring Physician Date Admitting Provider: Attending Provider: Morro Mitchell MD Referring Provider: *PT Outpatient Evaluation Start: 10/20/20 15:09 Freq: Status: Active Protocol: Document 12/03/20 14:00 [facility] (Rec: 12/03/20 17:30 [facility] [id number]) Therapy Assessment Status Assessment Status Assessment Status Re-evaluation Outpatient Past Medical History Neurological History Hx Cerebrovascular Accident (CVA) Yes: 2008 NO DEFICITS Cardiovascular History Hx Atrial Fibrillation Yes Hx Hypercholesterolemia Yes Hx Hypertension Yes Hx Other Cardiac Disorders Yes: 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/2019 Respiratory History Hx Respiratory Disorders No Significant History Gastrointestinal History Hx Gastrointestinal Disorders No Significant History Genitourinary History Hx Genitourinary Disorders No Significant History Musculoskeletal History Hx Arthritis Yes: HIPS Hx Crutches or Walker Use Yes: HAS WALKER FOR POST OP Query Text:If Yes, Enter Crutches, USE Walker, or Both in the Comment Hematological History Hx Hematological Disorders No Significant History Endocrine History Hx Endocrine Disorders No Significant History HEENT History Hx Tonsillectomy Yes Hx Sinus Problems Yes: SEASONAL ALLERGIES Hx Other HEENT Disorders Yes: GLASSES/CONTACTS, [place]- BILATEAL HEARSING AIDS, 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 Integumentary History Hx Skin Disorders No Significant History Reproductive History Hx Hysterectomy Yes: 2015 Hx Other Reproductive Disorders Yes: LT BREAST LUMPECTOMY= BENIGN Psychosocial History Hx Psychiatric Disorders No Significant History Pain History Has Past Pain Affected Your Daily Life Yes: LT HIP Anesthesia History Hx Anesthesia Reactions No Significant History Evaluation Information Problem Diagnosis L REYNA Onset 09/23/20 Additional Evaluation Detail LEFS = 40% functionally declined Subjective Information patient reports she feels Query Text:As Reported By Patient/ good this date. she reports Family no pain in the L hip. she reports she continues to experience some weakness in
--- NOTE | 2020-12-30 13:57 | PTOPEVAL ---
Thank you for referring Narcisa Panchal to [facility].? The patient is scheduled to be seen for therapy? ____x/week for ___ weeks. Please review, sign, date and return this plan of care DAVID. I agree with and certify that the following plan of care is medically necessary. Referring Physician Date Admitting Provider: Attending Provider: Morro Mitchell MD Referring Provider: *PT Outpatient Evaluation Start: 10/20/20 15:09 Freq: Status: Active Protocol: Document 12/30/20 13:10 [facility] (Rec: 12/30/20 13:56 [facility] [id number]) Therapy Assessment Status Assessment Status Assessment Status Discharge Outpatient Past Medical History Neurological History Hx Cerebrovascular Accident (CVA) Yes: 2008 NO DEFICITS Cardiovascular History Hx Atrial Fibrillation Yes Hx Hypercholesterolemia Yes Hx Hypertension Yes Hx Other Cardiac Disorders Yes: 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 LAST VISIT 10/2019 Respiratory History Hx Respiratory Disorders No Significant History Gastrointestinal History Hx Gastrointestinal Disorders No Significant History Genitourinary History Hx Genitourinary Disorders No Significant History Musculoskeletal History Hx Arthritis Yes: HIPS Hx Crutches or Walker Use Yes: HAS WALKER FOR POST OP Query Text:If Yes, Enter Crutches, USE Walker, or Both in the Comment Hematological History Hx Hematological Disorders No Significant History Endocrine History Hx Endocrine Disorders No Significant History HEENT History Hx Tonsillectomy Yes Hx Sinus Problems Yes: SEASONAL ALLERGIES Hx Other HEENT Disorders Yes: GLASSES/CONTACTS, [place]- BILATEAL HEARSING AIDS, 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 she reports Family no pain. she reports being compliant with her HEP exercises at home. she reports
== END 2020-12-30 15:06 | disposition home or self-care (01) ==
LOC: CHSPT 15:08
PROVIDERS: PCP Family Medicine; Visit Provider Orthopaedic Surgery
DX: Z96.642 Presence of left artificial hip joint (principal)
CPT/HCPCS: 97110; 97161; 97530

== ENCOUNTER 2021-05-12 09:58 | Outpatient (CLI) | payer MEDICARE, SELFPAY ==
--- NOTE | ~2021-05-12 | MM_ITS ---
EXAMINATION: MM screening [facility] w jade HISTORY: Screening TECHNIQUE: Craniocaudal and mediolateral oblique 3-D tomosynthesis images were obtained and synthetic 2-D images were generated. CAD analysis was submitted and interpreted. COMPARISON: Comparison to multiple prior studies sequentially, with oldest reviewed study dated 02/22. BREAST PARENCHYMAL COMPOSITION: There are scattered areas of fibroglandular density. FINDINGS: There is no evidence of suspicious mass, calcification, or architectural distortion to sugg est malignancy in either breast. There has been no suspicious interval change. IMPRESSION: 1. No mammographic evidence of malignancy. 2. Recommend routine screening mammography in one year. BI-RADS Category 1: Negative Reviewed, dictated and finalized at location A. D SALES SPECIALIST
== END 2021-05-12 09:59 | disposition home or self-care (01) ==
PROVIDERS: PCP Nurse Practitioner Family; Visit Provider Nurse Practitioner
DX: Z12.31 Encounter for screening mammogram for malignant neoplasm of breast (principal)
CPT/HCPCS: 77063; 77067

== ENCOUNTER 2021-06-16 11:52 | Outpatient (CLI) | payer MEDICARE, SELFPAY ==
--- NOTE | ~2021-06-16 | XR_ITS ---
EXAMINATION: XR abdomen/kub 1V EXAM DATE: 06/16/2021 12:09 INDICATION: RT flank pain x2days. TECHNIQUE: Frontal projection(s) of the abdomen for interpretation. There is no prior study for linda singer. FINDINGS: There is expected amount of colonic stool and gas. No small bowel dilation, nonobstructiv e bowel gas pattern. There are no suspicious calcifications identified. There is no organomegaly suspected. Left hip arthroplasty. There are mild bony degenerative changes. IMPRESSION: Unremarkable abdomen x-ray exam. Reviewed, dictated and finalized at location G. HEEL FLAP RUBBER
== END 2021-06-16 11:53 | disposition home or self-care (01) ==
LOC: CHSIMG 11:55
PROVIDERS: PCP Nurse Practitioner Family; Visit Provider Nurse Practitioner Family
DX: N23 Unspecified renal colic (principal)
CPT/HCPCS: 74018

== ENCOUNTER 2021-09-10 14:49 | Outpatient (CLI) | payer MEDICARE, SELFPAY ==
--- NOTE | ~2021-09-10 | DEXA_ITS ---
Bone Density Report Name: ALTAGRACIA DEMARCO Age: 75 Sex: Female Ethnicity: White Date of : 1945 Indication: postmenopausal; screening for osteoporosis; parental hip fracture; hysterectomy; Referring Provider: JASVIR, CHANDRA Study: Bone densitometry was performed. Exam Date: September 10, 2021 Accession number: [id number] Bone Density: Region BMD T-score Z-score Classification AP Spine(L1, L2, L3) 0.953 -0.6 1.8 Normal Femoral Neck (Right) 0.731 -1.1 1.0 Osteopenia Total Hip (Right) 0.742 -1.6 0.1 Osteopenia World Health Organization criteria for BMD impression classify patients as: Normal (T-score at or above -1.0), Osteopenia (T-score between -1.0 and -2.5), or Osteoporosis (T-score at or below -2.5). 10-year Fracture Risk(1): Major Osteoporotic Fracture 15% Hip Fracture 6.5% Reported Risk Factors: [place] (), Neck BMD=0.731, BMI=28.9, parental fracture (1) FRAX(R) Version 3.08. Fracture probability calculated for an untreated patient. Fracture probability may be lower if the patient has received treatment. Previous Exams: Region Exam Age BMD T-score BMD Change BMD Change Date g/cm2 vs Baseline vs Previous AP Spine (L1-L3) 09/10/2021 75 0.953 -0.6 0.032 (3.5%)# 0.032 (3.5%)# 04/08/2019 73 0.921 -0.9 Total Hip(Right) 09/10/2021 75 0.742 -1.6 -0.078 (-9.6%) -0.078 (-9.6%) 04/08/2019 73 0.821 -1.0 *Denotes significance at 95% confidence level, LSC for AP Spine = 0.022 g/cm2, LSC for Total Hip = 0.027 g/cm2 # Denotes dissimilar scan types or analysis methods Clinical Information Provided by Patient: Parent has had a hip fracture Has used the following medications: Vitamin D Has the following medical conditions: Hysterectomy Patient maximum height was 66 Menopause Age: 49 Drinks caffeinated beverages Onset of menses at age 11 Number of children 3 Impression: The patient has low bone mass, based on the Right Total Hip T-score. The patient has an estimated ten-year risk of hip fracture of 6.5% and an estimated ten-year risk of major fracture of 15%, based on the WHO FRAX algorithm. The patient has risk factors, including: parental hip fracture. No significant bone loss was observed. Discussion: BONE DENSITY IS LOW AT ONE OR MORE SKELETAL SITES. THE PATIENT'S BMD AND CLINICAL RISK FACTORS CONTRIBUTE TO THIS PATIENT'S INCREASED RISK OF FRACTURE. This patient's lowest T-score is low at one or more skeletal sites. It meets the World Health Organization's (WHO) criteria for ?low bone mas
== END 2021-09-10 14:50 | disposition home or self-care (01) ==
LOC: ANHIMG 14:52
PROVIDERS: PCP Nurse Practitioner Family; Visit Provider Nurse Practitioner
DX: Z78.0 Asymptomatic menopausal state (principal); M85.851 Other specified disorders of bone density and structure, right thigh
CPT/HCPCS: 77080

== ENCOUNTER 2022-01-12 08:54 | Outpatient (CLI) | payer MEDICARE, SELFPAY ==
[2022-01-12 09:40] LABS: Alanine Aminotransferase 16 U/L (14-59); Albumin Level 3.8 g/dL (3.4-5.0); Alkaline Phosphatase 86 U/L (46-116); Anion Gap 5 mmol/L (8-16); Aspartate Amino Transferase 16 U/L (15-37); Blood Urea Nitrogen 17 mg/dL (7-18); Calcium 8.8 mg/dL (8.5-10.1); Carbon Dioxide 28 mmol/L (21-32); Chloride 107 mmol/L (98-108); Cholesterol 111 mg/dL (0-200); Estimated Glomerular Filt Rate 51; Glucose 101 mg/dL (70-99); HDL Direct 54 mg/dL (40-60); LDL Cholesterol Calculated 39 mg/dL (<130); Magnesium 2.1 mg/dL (1.8-2.4); Osmolality Calculated 291 mOsm/kg (285-295); Potassium 4.4 mmol/L (3.5-5.1); Sodium 140 mmol/L (136-145); Total Protein 7.2 g/dL (6.4-8.2); Triglycerides 90 mg/dL (0-150)
== END 2022-01-12 08:55 | disposition home or self-care (01) ==
LOC: CHSLAB 08:57
PROVIDERS: PCP Nurse Practitioner Family; Visit Provider Internal Medicine Cardiovascular Disease
DX: I48.19 Other persistent atrial fibrillation (principal); Z79.01 Long term (current) use of anticoagulants; Z51.81 Encounter for therapeutic drug level monitoring; E78.00 Pure hypercholesterolemia, unspecified; R25.2 Cramp and spasm
CPT/HCPCS: 36415; 80053; 80061; 83735

== ENCOUNTER 2022-03-03 09:53 | Outpatient (CLI) | payer MEDICARE, SELFPAY ==
[2022-03-05 21:49] LABS: Vitamin D 25 Hydroxy 85 ng/mL (30-100)
== END 2022-03-03 09:54 | disposition home or self-care (01) ==
LOC: CHSLAB 09:55
PROVIDERS: PCP Nurse Practitioner Family; Visit Provider Nurse Practitioner
DX: E55.9 Vitamin D deficiency, unspecified (principal)
CPT/HCPCS: 36415; 82306

== ENCOUNTER 2022-05-13 10:07 | Outpatient (CLI) | payer MEDICARE, SELFPAY ==
--- NOTE | ~2022-05-13 | MM_ITS ---
EXAMINATION: MM screening [facility] BI w jade HISTORY: Screening mammogram TECHNIQUE: Craniocaudal and mediolateral oblique 3-D tomosynthesis images were obtained and synthetic 2-D images were generated. CAD analysis was submitted and interpreted. COMPARISON: 05/12/2021, 04/10/2020, 04/08/2019 BREAST PARENCHYMAL COMPOSITION: There are scattered areas of fibroglandular density. FINDINGS: No suspicious mass, calcification, or architectural distortion are identified in either yudy ast to suggest malignancy. There has been no suspicious interval change. IMPRESSION: 1. No mammographic evidence of malignancy. 2. Recommend routine screening mammography in one year. BI-RADS Category 1: Negative Reviewed, dictated and finalized at location A. CH HISTORY TEACHER
== END 2022-05-13 10:08 | disposition home or self-care (01) ==
LOC: ANHIMG 10:11
PROVIDERS: PCP Nurse Practitioner Family; Visit Provider Nurse Practitioner
DX: Z12.31 Encounter for screening mammogram for malignant neoplasm of breast (principal)
CPT/HCPCS: 77063; 77067

== ENCOUNTER 2022-08-31 11:35 | Outpatient (CLI) | payer MEDICARE, SELFPAY ==
[2022-08-31 11:52] LABS: Basophils Absolute Auto 0.06 K/mm3 (0.00-0.10); Basophils Percent Auto 0.9 % (0.0-1.0); Eosinophils Absolute Auto 0.06 K/mm3 (0.02-0.50); Eosinophils Percent Auto 0.9 % (1.0-6.0); Hematocrit 41.8 % (35.0-42.0); Hemoglobin 13.7 g/dL (11.7-13.8); Immature Granulocyte Absolute 0.03 K/mm3 (0.00-0.00); Immature Granulocyte Percent A 0.4 % (0.0-0.0); Lymphocytes Absolute Auto 1.86 K/mm3 (1.10-4.50); Lymphocytes Percent Auto 27.8 % (18.0-42.0); Mean Corpuscular HGB Conc 32.8 g/dL (32.0-36.0); Mean Corpuscular Hemoglobin 31.4 pg (27.0-31.0); Mean Corpuscular Volume 95.9 fL (78.0-102.0); Mean Platelet Volume 11.5 fl (9.2-11.8); Monocytes Absolute Auto 0.76 K/mm3 (0.10-0.90); Monocytes Percent Auto 11.4 % (2.0-11.0); Neutrophils Absolute Auto 3.9 K/mm3 (1.7-7.2); Neutrophils Percent Auto 58.6 % (50.0-70.0); Platelet Count Result 206 K/mm3 (150-420); Red Blood Count 4.36 M/mm3 (4.20-5.40); Red Cell Distribution Width 13.3 % (11.6-14.4); White Blood Count 6.7 K/mm3 (4.8-10.8)
[2022-08-31 11:58] LABS: Appearance Urine Clear (Clear); Bilirubin Urine 1+ (Negative); Blood Urine Negative (Negative); Glucose Urine UA Negative (Negative); Ketones Urine Negative (Negative); Leukocyte Esterase Ur Negative LEU/UL (Negative); Nitrate Urine Negative (Negative); Protein Urine 1+ (Negative); Specific Grav Ur >= 1.030 (1.010-1.020); Urobilinogen Urine 0.2 mg/dL (0.2-1.0); pH Urine 5.5 (5.0-8.0)
[2022-08-31 12:01] LABS: Add Urine Microscopic? YES; Color Urine Dark Yellow (Yellow); RBC Urine 0-2 /hpf (0-2); WBC Urine 0-3 /hpf (0-3)
[2022-08-31 12:02] LABS: Bacteria Urine Rare /hpf; Squamous Epithelial Cell Urine Few /hpf (Few)
[2022-08-31 12:46] LABS: Alanine Aminotransferase 62 U/L (14-59); Albumin Level 3.4 g/dL (3.4-5.0); Alkaline Phosphatase 67 U/L (46-116); Amylase 49 U/L (25-115); Anion Gap 10 mmol/L (8-16); Aspartate Amino Transferase 55 U/L (15-37); Bilirubin,Total 0.8 mg/dL (0.00-1.00); Blood Urea Nitrogen 18 mg/dL (7-18); Calcium 8.8 mg/dL (8.5-10.1); Carbon Dioxide 25 mmol/L (21-32); Chloride 106 mmol/L (98-108); Estimated Glomerular Filt Rate 44; Glucose 108 mg/dL (70-99); Lipase 21 U/L (16-77); Osmolality Calculated 294 mOsm/kg (285-295); Potassium 4.6 mmol/L (3.5-5.1); Sodium 141 mmol/L (136-145)
== END 2022-08-31 11:36 | disposition home or self-care (01) ==
PROVIDERS: PCP Nurse Practitioner Family; Visit Provider Nurse Practitioner Family
DX: R11.2 Nausea with vomiting, unspecified (principal)
CPT/HCPCS: 36415; 80053; 81001; 82150; 83690; 85025

== ENCOUNTER 2022-09-06 07:28 | Outpatient (CLI) | payer MEDICARE, SELFPAY ==
--- NOTE | ~2022-09-06 | US_ITS ---
US abdomen complete EXAMINATION: US Abdomen Complete INDICATION: Nausea and vomiting PROCEDURE: Realtime High Resolution abdomen ultrasound. COMPARISON: No prior studies for comparison FINDINGS: Gallbladder within normal limits. No gallstones, pericholecystic fluid, gallbladder wall t hickening or biliary dilatation. Common bile duct measures 4 mm. Study limited by patient body habit us. Liver echotexture is increased, consistent with fatty infiltration.. Pancreas within normal limits. Pancreatic tail is obscured by bowel gas. Spleen is unremarkeable. Renal echotexture is within norm al limits bilaterally without hydronephrosis, contour deforming mass or renal stone. Right kidney josefa sures 9.7 cm. Left kidney measures 9.1 cm. Visualized aspects of the aorta and IVC are within normal limits. Portal vein is patent. No sonograph ic Powers's sign indicated by the technologist. IMPRESSION: 1: Hepatic steatosis. Reviewed, dictated and finalized at location L. IMPRESSION: 1: Hepatic steatosis.
== END 2022-09-06 07:29 | disposition home or self-care (01) ==
PROVIDERS: PCP Nurse Practitioner Family; Visit Provider Nurse Practitioner Family
DX: R74.8 Abnormal levels of other serum enzymes (principal); R11.2 Nausea with vomiting, unspecified; K76.0 Fatty (change of) liver, not elsewhere classified
CPT/HCPCS: 76700

== ENCOUNTER 2023-03-07 14:06 | Outpatient (CLI) | payer MEDICARE, SELFPAY ==
[2023-03-07 14:21] LABS: Basophils Absolute Auto 0.06 K/mm3 (0.00-0.10); Basophils Percent Auto 0.9 % (0.0-1.0); Eosinophils Absolute Auto 0.06 K/mm3 (0.02-0.50); Eosinophils Percent Auto 0.9 % (1.0-6.0); Hemoglobin 12.7 g/dL (11.7-13.8); Immature Granulocyte Absolute 0.01 K/mm3 (0.00-0.00); Immature Granulocyte Percent A 0.2 % (0.0-0.0); Mean Corpuscular HGB Conc 32.6 g/dL (32.0-36.0); Mean Corpuscular Volume 98.2 fL (78.0-102.0); Mean Platelet Volume 11.1 fl (9.2-11.8); Monocytes Absolute Auto 0.58 K/mm3 (0.10-0.90); Monocytes Percent Auto 8.8 % (2.0-11.0); Neutrophils Absolute Auto 3.6 K/mm3 (1.7-7.2); Neutrophils Percent Auto 54.2 % (50.0-70.0); Platelet Count Result 141 K/mm3 (150-420); Red Blood Count 3.97 M/mm3 (4.20-5.40); Red Cell Distribution Width 13.7 % (11.6-14.4); White Blood Count 6.6 K/mm3 (4.8-10.8)
[2023-03-07 14:53] LABS: Alanine Aminotransferase 25 U/L (14-59); Albumin Level 3.7 g/dL (3.4-5.0); Alkaline Phosphatase 77 U/L (46-116); Anion Gap 7 mmol/L (8-16); Aspartate Amino Transferase 20 U/L (15-37); Bilirubin,Total 1.1 mg/dL (0.00-1.00); Blood Urea Nitrogen 17 mg/dL (7-18); Calcium 9.1 mg/dL (8.5-10.1); Carbon Dioxide 30 mmol/L (21-32); Chloride 107 mmol/L (98-108); Cholesterol 111 mg/dL (0-200); Estimated Glomerular Filt Rate 39; Glucose 106 mg/dL (70-99); HDL Direct 60 mg/dL (40-60); LDL Cholesterol Calculated 38 mg/dL (<130); Osmolality Calculated 299 mOsm/kg (285-295); Potassium 4.9 mmol/L (3.5-5.1); Sodium 144 mmol/L (136-145); Total Protein 7.1 g/dL (6.4-8.2); Triglycerides 63 mg/dL (0-150)
[2023-03-13 18:11] LABS: Vitamin D 25 Hydroxy 94 ng/mL (30-100)
== END 2023-03-07 14:07 | disposition home or self-care (01) ==
LOC: CHSLAB 14:08
PROVIDERS: PCP Nurse Practitioner Family; Visit Provider Nurse Practitioner Family
DX: E55.9 Vitamin D deficiency, unspecified (principal); Z79.899 Other long term (current) drug therapy; E78.5 Hyperlipidemia, unspecified; Z13.6 Encounter for screening for cardiovascular disorders; K76.0 Fatty (change of) liver, not elsewhere classified; I10 Essential (primary) hypertension
CPT/HCPCS: 36415; 80053; 80061; 82306; 85025

== ENCOUNTER 2023-04-13 14:13 | Outpatient (CLI) | payer MEDICARE, SELFPAY ==
[2023-04-13 14:50] LABS: Alanine Aminotransferase 25 U/L (14-59); Albumin Level 3.8 g/dL (3.4-5.0); Alkaline Phosphatase 74 U/L (46-116); Anion Gap 6 mmol/L (8-16); Aspartate Amino Transferase 21 U/L (15-37); Blood Urea Nitrogen 18 mg/dL (7-18); Carbon Dioxide 32 mmol/L (21-32); Chloride 103 mmol/L (98-108); Estimated Glomerular Filt Rate 48; Glucose 94 mg/dL (70-99); Osmolality Calculated 293 mOsm/kg (285-295); Potassium 4.1 mmol/L (3.5-5.1); Sodium 141 mmol/L (136-145); Total Protein 7.3 g/dL (6.4-8.2)
== END 2023-04-13 14:14 | disposition home or self-care (01) ==
LOC: CHSLAB 14:14
PROVIDERS: PCP Nurse Practitioner Family; Visit Provider Nurse Practitioner Family
DX: N28.9 Disorder of kidney and ureter, unspecified (principal)
CPT/HCPCS: 36415; 80053

== ENCOUNTER 2023-07-26 23:39 | Emergency (ER) | payer MEDICARE, SELFPAY ==
--- NOTE | ~2023-07-26 | CT_ITS ---
Non-contrast Head CT History: Bilateral arm heaviness Technique: Axial non-contrast imaging of the brain was performed. Dose reduction technique was used on this scan by utilizing automated exposure control and iterative reconstruction technique. The dose -length product (DLP) was 681.00 mGy-cm. Findings: There is no evidence of intracranial hemorrhage, mass lesion, or acute infarct. Chronic in farct noted in the left frontal lobe. The ventricles and subarachnoid spaces are normal in size. Th e calvarium appears normal. The visualized paranasal sinuses and mastoid air cells are clear. Impression: No acute abnormality seen. Chronic left frontal lobe infarct. Reviewed, dictated and finalized at location . Impression: No acute abnormality seen. Chronic left frontal lobe infarct.
--- NOTE | ~2023-07-26 | XR_ITS ---
Portable chest x-ray Comparison: None Clinical History: Chest Findings: Lungs are clear, without focal consolidation or pleural effusion. Cardiomediastinal silho uette is enlarged. Bones and soft tissues are unremarkable. Impression: Clear lungs. Cardiomegaly, versus possibility of pericardial effusion. Reviewed, dictated and finalized at location . Impression: Clear lungs. Cardiomegaly, versus possibility of pericardial effusion.
[2023-07-26 23:40] VITALS: PULSE 63
[2023-07-26 23:47] VITALS: BP 163/83; BP 181/73; PULSE 71; PULSE 87; RESP 16; RESP 21; TEMP 36.3; O2SAT 97
[2023-07-26 23:48] VITALS: PULSE 68; RESP 24
--- NOTE | 2023-07-26 23:50 | ECG_ITS ---
Measurements Intervals [place] Rate: 69 P: CO: 0 QRS: -28 QRSD: 95 T: 108 QT: 421 QTc: 452 Interpretive Statements ATRIAL FIBRILLATION SEPTAL MYOCARDIAL INFARCTION , PROBABLY OLD [40+ ms Q WAVE IN V1/V2] COMPARED TO ECG 08/17/2020 10:58:48 NO SIGNIFICANT CHANGES Electronically Signed On 07-27-2023 10:58:08 CDT by Brodie Christine M.D.
[2023-07-26 23:51] LABS: Glucose Point of Care 120 mg/dl (65-105)
--- NOTE | 2023-07-26 23:52 | ED.NEUROSD ---
HPI - Neuro Symptoms/Deficit General Chief Complaint: Weakness Stated Complaint: weakness Time Seen by Provider: 07/26/23 23:41 Source: patient Mode of arrival: ambulatory Limitations: no limitations History of Present Illness HPI Narrative: 77-year-old female with a history of hypertension, dyslipidemia, hepatic steatosis, atrial fibrillation with cardioembolic stroke which left her with minimal expressive aphasia, arthritis status post hip replacement, osteoporosis presents to the ER with a 3 hour history of -- her arms felt frozen. She did not have any arm weakness. The patient did not have any headache, dysphagia, dysarthria, speech difficulty, focal weakness. -- Minimal chest discomfort. The patient does not have a prior history of coronary artery disease. Blood sugar was noted to be 120. Onset (ago): hour(s) ( 3 hours ago) Time: 23:55 Last Observed Normal: 19:30 Timing confirmed by: family member Location: left arm and right arm History of same: No Quality: other ( she fell both arms were frozen.) Relieving factors: none Exacerbating factors: none Context: sudden onset On Anticoagulants: Yes Associated symptoms: denies other symptoms Treatments Prior to Arrival: none Related Data Home Medications Medication Instructions Recorded Confirmed cetirizine 10 mg capsule (Zyrtec) 10 mg PO DAILY PRN Congestion 07/07/20 07/27/23 zinc 50 mg tablet 50 mg PO DAILY 07/07/20 07/27/23 magnesium 500 mg tablet 15 mg PO DAILY 07/08/20 07/27/23 acetaminophen 500 mg tablet 1,000 mg PO Q6H PRN Pain 09/14/20 07/27/23 (Tylenol Extra Strength) cranberry-vit 1 cap PO QAM 09/14/20 07/27/23 C-B.coag-FOS-L.acid-L.rham 250 mg-30 mg-39.5 mg capsule (Probiotic Plus and Cranberry) rcnawemx-xcws-vlwx 8 mg-folic 400 1 tablet PO QAM 09/14/20 07/27/23 mcg-K 50 mcg-lutein 300 mcg tablet (Multivitamin Women 50 Plus) omega-3 fatty acids-vitamin E 1 cap QAM 09/14/20 07/27/23 1,000 mg capsule alendronate 70 mg tablet 70 mg PO WEEKLY 07/26/22 07/27/23 Allergies Allergy/AdvReac Type Severity Reaction Status Date / Time Sulfa (Sulfonamide Allergy Unknown Hives Verified 03/07/23 13:28 Antibiotics) Review of Systems Review of Systems: All systems reviewed & are unremarkable except as noted in HPI and below Constitutional: Constitutional: Reports as per HPI and Reports no additional constitutional complaints Eyes: Eyes: Reports as per HPI and Reports no additional eye complaints ENT: Reports system reviewed and no additional complaints, except as documented and Reports as per HPI Cardiovascular: Cardiovascular: Reports as per HPI and Reports no additional cardiovascular complaints Comments: Patient complains of minimal chest discomfort. She denies chest pain. Respiratory: Respiratory: Reports as per HPI and Reports no additional respiratory complaints Gastrointestinal: Gastrointestinal: Reports as per HPI, Reports no additional gastrointestinal complaints and Reports nausea Genitourinary: Genitourinary: Reports no additional female genitourinary complaints and Reports as per HPI Musculoskeletal: Musculoskeletal: Reports no additional musculoskeletal complaints and Reports as per HPI Integumentary/Breasts: Skin/Breast: Reports system reviewed and no additional complaints, except as docu and Reports as per HPI Neurologic: Reports system reviewed and no additional complaints, except as documented and Reports as per HPI Psychiatric: Psychiatric: Reports no additional psychiatric complaints and Reports as per HPI Endocrine: Endocrine: Reports no additional endocrine complaints and Reports excessive sweating Hematologic/Lymphatic: Hematologic/Lymphatic: Reports no additional hematologic/lymphatic complaints and Reports as per HPI Allergic/Immunologic: Allergic/Immunologic: Reports no additional allergic/immunologic complaints and Reports as per HPI PMFSH Past Medical History Medical History (Reviewed
[2023-07-26 23:59] LABS: Basophils Percent Auto 1.4 % (0.0-1.0); Eosinophils Absolute Auto 0.15 K/mm3 (0.02-0.50); Hematocrit 43.5 % (35.0-42.0); Hemoglobin 13.5 g/dL (11.7-13.8); Immature Granulocyte Absolute 0.01 K/mm3 (0.00-0.00); Immature Granulocyte Percent A 0.1 % (0.0-0.0); Lymphocytes Absolute Auto 2.98 K/mm3 (1.10-4.50); Lymphocytes Percent Auto 40.3 % (18.0-42.0); Mean Corpuscular Hemoglobin 30.8 pg (27.0-31.0); Mean Corpuscular Volume 99.3 fL (78.0-102.0); Mean Platelet Volume 11.1 fl (9.2-11.8); Monocytes Absolute Auto 0.72 K/mm3 (0.10-0.90); Monocytes Percent Auto 9.7 % (2.0-11.0); Neutrophils Absolute Auto 3.44 K/mm3 (1.70-7.20); Neutrophils Percent Auto 46.5 % (50.0-70.0); Platelet Count Result 180 K/mm3 (150-420); Red Blood Count 4.38 M/mm3 (4.20-5.40); Red Cell Distribution Width 13.5 % (11.6-14.4); White Blood Count 7.4 K/mm3 (4.8-10.8)
[2023-07-27] VITALS (8 sets, daily range): BP systolic 143–158; BP diastolic 52–76; PULSE 57–73; RESP 12–21; O2SAT 92–96
[2023-07-27] MEDS: ASPIRIN 81 MG CHEWABLE TABLET 162 MG PO (00:10)
[2023-07-27 00:14] LABS: INR 1.5; Partial Thromboplastin Time 38.1 Sec (23.9-30.70); Prothrombin Time 16.4 Seconds (9.50-12.1)
[2023-07-27 00:21] LABS: Lactic Acid Reflex 2.1 mmol/L (0.4-2.0)
[2023-07-27 00:22] LABS: Alanine Aminotransferase 39 U/L (14-59); Albumin Level 3.8 g/dL (3.4-5.0); Alkaline Phosphatase 105 U/L (46-116); Anion Gap 11 mmol/L (4-12); Aspartate Amino Transferase 41 U/L (15-37); Bilirubin,Total 0.6 mg/dL (0.00-1.00); Blood Urea Nitrogen 23 mg/dL (7-18); Carbon Dioxide 28 mmol/L (21-32); Chloride 104 mmol/L (98-108); Estimated CRCL calculation 33 ml/min; Estimated Glomerular Filt Rate 42; Glucose 120 mg/dL (70-99); NT Pro B Type Natriuretic Pept 5282 pg/mL (0-450); Osmolality Calculated 300 mOsm/kg (285-295); Potassium 4.7 mmol/L (3.5-5.1); Sodium 143 mmol/L (136-145); Total Protein 7.9 g/dL (6.4-8.2)
[2023-07-27 00:23] LABS: Troponin I 19.5 ng/L (0.00-60.4)
--- NOTE | 2023-07-27 00:47 | PC.NURSE ---
Dr. Bustamante at bedside speaking with patient and her son regarding results and plan.
[2023-07-27 02:56] LABS: Reflex Lactic Acid Yes or No Add Lactic
== END 2023-07-27 00:58 | disposition home or self-care (01) ==
PROVIDERS: Emergency Provider Internal Medicine Critical Care Medicine; PCP Nurse Practitioner Family
DX: G45.9 Transient cerebral ischemic attack, unspecified (principal); I48.20 Chronic atrial fibrillation, unspecified; F41.9 Anxiety disorder, unspecified; I12.9 Hypertensive chronic kidney disease with stage 1 through stage 4 chronic kidney disease, or unspecified chronic kidney disease; N18.32 Chronic kidney disease, stage 3b; E78.5 Hyperlipidemia, unspecified; K76.0 Fatty (change of) liver, not elsewhere classified; M81.0 Age-related osteoporosis without current pathological fracture; Z86.718 Personal history of other venous thrombosis and embolism; Z86.73 Personal history of transient ischemic attack (TIA), and cerebral infarction without residual deficits; Z79.01 Long term (current) use of anticoagulants; R29.700 NIHSS score 0
CPT/HCPCS: 36415; 70450; 71045; 80053; 82948; 83605; 83880; 84484; 85025; 85610; 85730; 93005; 99284; A9270

== ENCOUNTER 2023-07-30 12:37 | Emergency (ER) | payer MEDICARE, SELFPAY ==
[2023-07-30] VITALS (8 sets, daily range): BP systolic 131–154; BP diastolic 41–64; PULSE 55–85; RESP 16–18; TEMP 36.3; O2SAT 97–100
--- NOTE | ~2023-07-30 | XR_ITS ---
XR chest 2V DATE: 07/30/2023 14:23 INDICATION: Palpitations TECHNIQUE: AP and lateral views COMPARISON: July 27, 2023 portable AP chest FINDINGS: There is prominent globular cardiac silhouette enlargement which may be due to cardiomegaly and/or pericardial effusion. There is aortic unfolding. No pulmonary infiltrate or consolidation, pleural effusion or pulmonary vascular congestion or pneumo thorax is detected. There is air beneath the right leaf of the diaphragm on AP projection which appears to be contained w ithin bowel when reviewing the lateral view. If there is concern for pneumoperitoneum or bowel hernia tion through the diaphragmatic defect, consider CT chest and abdomen examination. There is osteopenia. IMPRESSION: Globular enlarged cardiac silhouette which may be due to cardiomegaly and/or pericardial effusion Suggestion of air beneath the diaphragm on the AP view, likely within bowel on correlation with the l ateral projection. Recommend clinical correlation and if necessary CT examination No active pulmonary disease/ Reviewed, dictated and finalized at location A. IMPRESSION: Globular enlarged cardiac silhouette which may be due to cardiomega ly and/or pericardial effusion Suggestion of air beneath the diaphragm on the AP view, likely within bowel on correlation with the lateral projection. Recommend clinical correlation and if necessary CT examination No active pulmonary disease/
--- NOTE | 2023-07-30 13:07 | ECG_ITS ---
Measurements Intervals [place] Rate: 72 P: * AK: * QRS: -52 QRSD: 105 T: -91 QT: 432 QTc: 457 Interpretive Statements ATRIAL FIBRILLATION WITH ABERRANT CONDUCTION OR VENTRICULAR PREMATURE COMPLEXES LEFT ANTERIOR FASCICULAR BLOCK [QRS AXIS <= -45, QR IN I, RS IN II] POSSIBLE ANTERIOR MYOCARDIAL INFARCTION, PROBABLY OKD [30 ms Q WAVE IN V3/V4 OR R < 0.2 mV IN V4] ABNORMAL ECG SEE SCANNED COPY FOR SIGNATURE MTDD
[2023-07-30 14:44] LABS: Basophils Absolute Auto 0.1 K/mm3 (0.0-0.1); Basophils Percent Auto 0.8 % (0.2-1.2); Eosinophils Absolute Auto 0.1 K/mm3 (0-0.3); Eosinophils Percent Auto 1.1 % (0-4.4); Hematocrit 38.8 % (37.0-47.0); Hemoglobin 12.4 g/dL (12.0-15.0); Immature Granulocyte Absolute 0.02 K/mm3 (0.00-0.031); Immature Granulocyte Percent A 0.3 % (0-0.5); Lymphocytes Absolute Auto 1.92 K/mm3 (0.9-3.2); Lymphocytes Percent Auto 26.3 % (18.3-44.2); Mean Platelet Volume 11.1 fl (7.4-10.4); Monocytes Absolute Auto 0.6 K/mm3 (0.1-0.6); Monocytes Percent Auto 8.4 % (2.6-8.5); Neutrophils Absolute Auto 4.6 K/mm3 (1.3-6.7); Neutrophils Percent Auto 63.1 % (45.5-73.1); Platelet Count Result 167 k/mm3 (150-375); Red Cell Distribution Width 13.5 % (11.5-14.5); White Blood Count 7.3 K/mm3 (4.5-10.0)
[2023-07-30 14:55] LABS: INR 1.3; Prothrombin Time 17.1 Seconds (11.1-14.7)
[2023-07-30 14:56] LABS: Partial Thromboplastin Time 32.6 Seconds (22.3-36.8)
[2023-07-30 14:59] LABS: Alanine Aminotransferase 24 U/L (6-35); Albumin Level 4.2 g/dL (3.5-5.1); Alkaline Phosphatase 77 U/L (38-126); Anion Gap 8 mmol/L (4-12); Aspartate Amino Transferase 30 U/L (14-36); Bilirubin,Total 1.1 mg/dL (0.2-1.3); Blood Urea Nitrogen 20 mg/dL (7-17); Calcium 9.9 mg/dL (8.4-10.2); Carbon Dioxide 25 mmol/L (22-30); Chloride 108 mmol/L (98-107); Estimated CRCL calculation 40 ml/min; Estimated Glomerular Filt Rate 54; Glucose 106 mg/dL (65-110); Magnesium 2.3 mg/dL (1.6-2.3); Potassium 4.6 mmol/L (3.4-5.0); Sodium 141 mmol/L (137-145)
[2023-07-30 15:10] LABS: Troponin I < 0.012 ng/mL (0.000-0.034)
--- NOTE | 2023-07-30 16:14 | ED.GENADULT ---
HPI - General Adult General Chief complaint: Arrhythmia/Palpitations Stated complaint: heart is acting funny Time Seen by Provider: 07/30/23 13:51 History of Present Illness HPI narrative: Patient is a 77-year-old female who presents ER with reports of palpitations. Reports she just has been feeling her heart rate more than typical with sleep. She also had an episode of dizziness while walking from her kitchen that improved when she sat down. No loss of consciousness. No fevers chills or sweats. No numbness or tingling. She has been compliant with home medications. She is on blood thinner. Couple days ago she had numbness in her upper extremities. She went to the ER and was started on baby aspirin incase she had a TIA. Related Data Home Medications Medication Instructions Recorded Confirmed cetirizine 10 mg capsule (Zyrtec) 10 mg PO DAILY PRN Congestion 07/07/20 07/27/23 zinc 50 mg tablet 50 mg PO DAILY 07/07/20 07/27/23 magnesium 500 mg tablet 15 mg PO DAILY 07/08/20 07/27/23 acetaminophen 500 mg tablet 1,000 mg PO Q6H PRN Pain 09/14/20 07/27/23 (Tylenol Extra Strength) cranberry-vit 1 cap PO QAM 09/14/20 07/27/23 C-B.coag-FOS-L.acid-L.rham 250 mg-30 mg-39.5 mg capsule (Probiotic Plus and Cranberry) uxrhnyei-rpie-obky 8 mg-folic 400 1 tablet PO QAM 09/14/20 07/27/23 mcg-K 50 mcg-lutein 300 mcg tablet (Multivitamin Women 50 Plus) omega-3 fatty acids-vitamin E 1 cap QAM 09/14/20 07/27/23 1,000 mg capsule alendronate 70 mg tablet 70 mg PO WEEKLY 07/26/22 07/27/23 Allergies Allergy/AdvReac Type Severity Reaction Status Date / Time Sulfa (Sulfonamide Allergy Unknown Hives Verified 07/30/23 14:25 Antibiotics) Review of Systems Review of Systems: All systems reviewed & are unremarkable except as noted in HPI and below Constitutional: Constitutional: Reports no additional constitutional complaints ENT: Reports system reviewed and no additional complaints, except as documented Cardiovascular: Cardiovascular: Denies chest pain, Denies rapid heart rate and Denies radiating jaw, neck or arm pain Comments: Palpitations Respiratory: Respiratory: Reports as per [facility] Past Medical History Medical History Cerebrovascular accident (2008) No residual deficit. Chronic atrial fibrillation Current use of exterminator termite anticoagulation Degenerative joint disease History of deep venous thrombosis Hyperlipidemia Hypertension Nausea Osteoporosis Surgical History Surgical History History of hysterectomy History of left breast biopsy Benign pathology. History of tonsillectomy History of total left hip arthroplasty (09/23/20) S/P total hip arthroplasty Family History Family History Other Cancer of kidney Heart disease Social History Social History Social History: The patient is and lives in her own home in [place]. She has 3 grown children. Lifelong nonsmoker. No alcohol or illicit substance abuse. She designates her son, Kaushik Panchal, as her surrogate decision maker and she wishes to be a full code. Smoking status: Never smoker Alcohol intake: never Substance use: never Lack of Transportation: No Lack of Food: Never True Current Housing: I Have Housing Concerned About Future Housing: No Difficulty Paying Gas/Electric Bills: No Difficulty Paying for Meds: No Currently Unemployed: No Education: High School Diploma/GED Difficulty w/ Childcare or Family Care: No Living arrangements: alone Occupation/Education: retired Exam Narrative: GENERAL: Well-appearing, well-nourished, and in no acute distress. HEAD: Normocephalic, atraumatic. ENT: Mucous membranes moist. NECK: Supple. CHEST: Clear to auscultation. No
== END 2023-07-30 17:08 | disposition home or self-care (01) ==
PROVIDERS: Emergency Provider Emergency Medicine; PCP Nurse Practitioner Family
DX: R00.2 Palpitations (principal); I48.20 Chronic atrial fibrillation, unspecified; E78.5 Hyperlipidemia, unspecified; I10 Essential (primary) hypertension; M81.0 Age-related osteoporosis without current pathological fracture; Z96.642 Presence of left artificial hip joint; Z86.73 Personal history of transient ischemic attack (TIA), and cerebral infarction without residual deficits; Z86.718 Personal history of other venous thrombosis and embolism; Z90.710 Acquired absence of both cervix and uterus; I44.4 Left anterior fascicular block; R94.31 Abnormal electrocardiogram [ECG] [EKG]; R93.1 Abnormal findings on diagnostic imaging of heart and coronary circulation
CPT/HCPCS: 36415; 71046; 80053; 83735; 84484; 85025; 85610; 85730; 93005; 99284

== ENCOUNTER 2023-08-07 14:50 | Outpatient (CLI) | payer MEDICARE, SELFPAY | END 2023-08-07 14:51 | disposition home or self-care (01) | PROVIDERS: PCP Nurse Practitioner Family; Visit Provider Nurse Practitioner Family | DX: R79.89 Other specified abnormal findings of blood chemistry (principal); I48.20 Chronic atrial fibrillation, unspecified; R06.02 Shortness of breath | CPT/HCPCS: 99199 ==

== ENCOUNTER 2023-08-14 14:42 | Outpatient (CLI) | payer MEDICARE, SELFPAY ==
--- NOTE | 2023-08-14 14:48 | ECHO_ITS ---
Patient Info Name: Narcisa Panchal Age: 77 years : 1945 Gender: Female Ht: 66 in Wt: 155 lbs BSA: 1.82 m2 HR: 75 bpm BP: 135 / 90 mmHg Heart Rhythm: Sinus Rhythm Technical Quality: Good Exam Date: 08/14/2023 2:40 PM Exam Location: Echo Lab Patient Status: Outpatient Admit Date: 08/14/2023 Staff Ordering Physician: Shakila Salomon NP Bindery Cutter Operator: Cindy Alberts RDCS Attending Provider: Pina Saba APRN Referring Physician: Umm LANIER; Exam Type: CA echo doppler color flow Study Info Indications - other specified abnormal finding of blood Complete two-dimensional, color flow and Doppler transthoracic echocardiogram is performed. Summary 1. Complete two-dimensional, color flow and Doppler transthoracic echocardiogram is performed. 2. Left ventricular chamber dimension is mildly enlarged. 3. Basal inferior wall is akinetic. 4. Left ventricular systolic function is mildly globally reduced, estimated at 45-50%. 5. The left ventricular diastolic function is normal. 6. E/e' 6 is not elevated. 7. Left atrial chamber dimension is severely enlarged. 8. Right atrial chamber dimension is severely enlarged. 9. There is moderate aortic valve regurgitation. 10. There is mild mitral valve regurgitation. 11. There is moderate tricuspid valve regurgitation. 12. Mild pulmonary hypertension, estimated pulmonary arterial systolic pressure is 49 mmHg. 13. There is mild pulmonic regurgitation. Left Ventricle E/e' 6 is not elevated. Basal inferior wall is akinetic. Left ventricular systolic function is mildly globally reduced, estimated at 45-50%. Left ventricular chamber dimension is mildly enlarged. The left ventricular diastolic function is normal. Right Ventricle Right ventricular systolic function is normal and with normal TAPSE 2.9 cm. Right ventricular chamber dimension is normal. Left Atria Left atrial chamber dimension is severely enlarged. Right Atria Right atrial chamber dimension is severely enlarged. Aortic Valve The aortic valve is trileaflet. There is no aortic valve stenosis. There is moderate aortic valve regurgitation. Pulmonic Valve There is mild pulmonic regurgitation. Mitral Valve There is no mitral valve stenosis. There is mild mitral valve regurgitation. Tricuspid Valve There is moderate tricuspid valve regurgitation. Mild pulmonary hypertension, estimated pulmonary arterial systolic pressure is 49 mmHg. Pericardium/Pleural There is no pericardial effusion. Inferior Vena Cava Normal inferior vena cava with >50% collapse upon inspiration consistent with normal right atrial pressure, 5 mmHg. Aorta The aortic root size at the sinus of Valsalva is normal. Left Ventricular Outflow Tract Name Value Normal LVOT 2D LVOT Diameter 2.1 cm LVOT Doppler LVOT Peak Velocity 102 cm/s LVOT Peak Gradient 4 mmHg LVOT Mean Gradient 3 mmHg LVOT VTI 28 cm LVOT VTI/AV VTI Ratio 0.8 LVOT Stroke Volume 97 ml Pulmonic Valve
== END 2023-08-14 14:43 | disposition home or self-care (01) ==
LOC: CHSIMG 14:44
PROVIDERS: PCP Nurse Practitioner Family; Visit Provider Nurse Practitioner Family
DX: I48.20 Chronic atrial fibrillation, unspecified (principal); R06.02 Shortness of breath; R79.89 Other specified abnormal findings of blood chemistry; I08.3 Combined rheumatic disorders of mitral, aortic and tricuspid valves
CPT/HCPCS: 93306

== ENCOUNTER 2023-11-16 08:50 | Outpatient (CLI) | payer MEDICARE, SELFPAY ==
--- NOTE | ~2023-11-16 | DEXA_ITS ---
Bone Density Report Name: ALTAGRACIA DEMARCO Age: 78 Sex: Female Ethnicity: White Date of : 1945 Indication: osteopenia; hysterectomy; Referring Provider: JASVIR, CHANDRA Study: Bone densitometry was performed. Exam Date: November 16, 2023 Accession number: [id number] Bone Density: Region BMD T-score Z-score Classification AP Spine(L1, L2, L3) 0.961 -0.5 1.9 Normal Femoral Neck (Right) 0.743 -1.0 1.2 Normal Total Hip (Right) 0.769 -1.4 0.5 Osteopenia World Health Organization criteria for BMD impression classify patients as: Normal (T-score at or above -1.0), Osteopenia (T-score between -1.0 and -2.5), or Osteoporosis (T-score at or below -2.5). 10-year Fracture Risk(1): Major Osteoporotic Fracture 11% Hip Fracture 1.8% Reported Risk Factors: [place] (), Neck BMD=0.743, BMI=26.5 (1) FRAX(R) Version 3.08. Fracture probability calculated for an untreated patient. Fracture probability may be lower if the patient has received treatment. Previous Exams: Region Exam Age BMD T-score BMD Change BMD Change Date g/cm2 vs Baseline vs Previous AP Spine (L1-L3) 11/16/2023 78 0.961 -0.5 0.041 (4.4%)# 0.008 (0.9%) 09/10/2021 75 0.953 -0.6 0.032 (3.5%)# 0.032 (3.5%)# 04/08/2019 73 0.921 -0.9 Total Hip(Right) 11/16/2023 78 0.769 -1.4 -0.051 (-6.2%) 0.027 (3.7%) 09/10/2021 75 0.742 -1.6 -0.078 (-9.6%) -0.078 (-9.6%) 04/08/2019 73 0.821 -1.0 *Denotes significance at 95% confidence level, LSC for AP Spine = 0.022 g/cm2, LSC for Total Hip = 0.027 g/cm2 # Denotes dissimilar scan types or analysis methods Clinical Information Provided by Patient: Has used the following medications: Fosamax (i.e. alendronate), Vitamin D, Calcium Has the following medical conditions: Hysterectomy Patient maximum height was 66.0 Menopause Age: 49 Drinks caffeinated beverages Onset of menses at age 11 Number of children 3 Impression: The patient has low bone mass, based on the Right Total Hip T-score. The patient has an estimated ten-year risk of hip fracture of 1.8% and an estimated ten-year risk of major fracture of 11%, based on the WHO FRAX algorithm. No significant bone loss was observed. Discussion: BONE DENSITY IS LOW AT ONE OR MORE SKELETAL SITES. This patient's lowest T-score is low at one or more skeletal sites. It meets the World Health Organization's (WHO) criteria for ?low bone mass? (T-score between -1.0 and -2.5). The patient's 10-year risk of fracture as calculated by FRAX is
--- NOTE | ~2023-11-16 | MM_ITS ---
EXAMINATION: MM screening armen BI w jade HISTORY: Screening TECHNIQUE: Craniocaudal and mediolateral oblique 3-D tomosynthesis images were obtained and synthetic 2-D images were generated. CAD analysis was submitted and interpreted. COMPARISON: Comparison to multiple prior studies sequentially, with oldest reviewed study dated 01/11. BREAST PARENCHYMAL COMPOSITION: Not dense: There are scattered areas of fibroglandular density. FINDINGS: There is a new focal asymmetry inferior to the left nipple anteriorly on the left MLO view. The right breast is stable without evidence for malignancy. IMPRESSION: 1. New left breast asymmetry. 2. Additional mammographic views and possible breast ultrasound are recommended. BI-RADS Category 0: Incomplete: Needs additional imaging evaluation. Reviewed, dictated and finalized at location B. IMPRESSION: 1. New left breast asymmetry. 2. Additional mammographic views and possible breast ultrasound are recommended . BI-RADS Category 0: Incomplete: Needs additional imaging evaluation.
== END 2023-11-16 08:51 | disposition home or self-care (01) ==
LOC: ANHIMG 08:56
PROVIDERS: PCP Nurse Practitioner Family; Visit Provider Nurse Practitioner
DX: Z12.31 Encounter for screening mammogram for malignant neoplasm of breast (principal); M85.88 Other specified disorders of bone density and structure, other site; R92.8 Other abnormal and inconclusive findings on diagnostic imaging of breast; M85.851 Other specified disorders of bone density and structure, right thigh
CPT/HCPCS: 77063; 77067; 77080

== ENCOUNTER 2023-12-11 10:32 | Outpatient (CLI) | payer MEDICARE, SELFPAY ==
--- NOTE | ~2023-12-11 | MMUS_ITS ---
EXAMINATION: MM diagnostic armen LT w jade, US breast LT limited HISTORY: Follow-up left breast mass TECHNIQUE: Additional 3-D tomosynthesis images of the left breast were performed and synthetic 2-D im ages were generated. CAD analysis was submitted and interpreted. High resolution Limited left breast ultrasound was performed. COMPARISON: Comparison to multiple prior studies sequentially, with oldest reviewed study dated 03/24. BREAST PARENCHYMAL COMPOSITION: Not dense: There are scattered areas of fibroglandular density. FINDINGS: MAMMOGRAPHIC FINDINGS: There are no suspicious masses, calcifications or architectural distortion in the left breast to sugg est malignancy. ULTRASOUND: Limited left breast ultrasound: At 9:00, 4 cm from the nipple there is an oval hyperechoic parallel o rientation mass located superficially measuring 6 mm, consistent with benign lipoma. No other discret e solid or cystic mass aren't identified. No sonographic evidence for malignancy in the left breast. IMPRESSION: 1. No evidence for malignancy in the left breast. Benign finding. 2. Routine yearly screening mammogram and regular clinical breast examination are recommended. BI-RADS Category 2: Benign finding(s). Reviewed, dictated and finalized at location B. IMPRESSION: 1. No evidence for malignancy in the left breast. Benign finding. 2. Routine yearly screening mammogram and regular clinical breast examination a re recommended. BI-RADS Category 2: Benign finding(s).
== END 2023-12-11 10:33 | disposition home or self-care (01) ==
LOC: ANHIMG 10:33
PROVIDERS: PCP Nurse Practitioner Family; Visit Provider Obstetrics & Gynecology Gynecology
DX: R92.8 Other abnormal and inconclusive findings on diagnostic imaging of breast (principal)
CPT/HCPCS: 76642; 77061; 77065; G0279

== ENCOUNTER 2024-03-20 09:32 | Outpatient (CLI) | payer MEDICARE, SELFPAY ==
--- NOTE | ~2024-03-20 | XR_ITS ---
XR chest 2V 03/20/2024 10:04 Indication: Chronic A. fib. Shortness of breath. Procedure: 2 view chest Comparison: Comparison to multiple prior studies sequentially, with oldest reviewed study dated 03/25. Findings: Cardiomegaly with mild interstitial edema. No pleural effusion. No pneumothorax. No acute o sseous abnormality. Impression: 1: Cardiomegaly with mild interstitial edema. Reviewed, dictated and finalized at location B. PMENT SPECIALIST Impression: 1: Cardiomegaly with mild interstitial edema.
[2024-03-20 09:50] LABS: Basophils Absolute Auto 0.05 K/mm3 (0.00-0.10); Basophils Percent Auto 0.7 % (0.0-1.0); Eosinophils Absolute Auto 0.17 K/mm3 (0.02-0.50); Eosinophils Percent Auto 2.3 % (1.0-6.0); Hematocrit 38.3 % (35.0-42.0); Hemoglobin 12.5 g/dL (11.7-13.8); Immature Granulocyte Absolute 0.02 K/mm3 (0.00-0.00); Immature Granulocyte Percent A 0.3 % (0.0-0.0); Lymphocytes Absolute Auto 1.48 K/mm3 (1.10-4.50); Lymphocytes Percent Auto 20.2 % (18.0-42.0); Mean Corpuscular HGB Conc 32.6 g/dL (32-36); Mean Corpuscular Hemoglobin 31.9 pg (27.0-31.0); Mean Corpuscular Volume 97.7 fL (78.0-102.0); Mean Platelet Volume 11.4 fl (9.2-11.8); Monocytes Absolute Auto 0.56 K/mm3 (0.10-0.90); Monocytes Percent Auto 7.7 % (2.0-11.0); Neutrophils Absolute Auto 5.03 K/mm3 (1.70-7.20); Neutrophils Percent Auto 68.8 % (50.0-70.0); Platelet Count Result 149 K/mm3 (150-420); Red Blood Count 3.92 M/mm3 (4.20-5.40); Red Cell Distribution Width 14.8 % (11.6-14.4); White Blood Count 7.3 K/mm3 (4.8-10.8)
[2024-03-20 10:19] LABS: Alanine Aminotransferase 17 U/L (14-59); Albumin Level 3.5 g/dL (3.4-5.0); Alkaline Phosphatase 71 U/L (46-116); Anion Gap 7 mmol/L (4-12); Aspartate Amino Transferase 23 U/L (15-37); Bilirubin,Total 1.2 mg/dL (0.00-1.00); Blood Urea Nitrogen 20 mg/dL (7-18); Calcium 8.9 mg/dL (8.5-10.1); Carbon Dioxide 27 mmol/L (21-32); Chloride 106 mmol/L (98-108); Estimated Glomerular Filt Rate 46; Glucose 113 mg/dL (70-99); NT Pro B Type Natriuretic Pept 14098 pg/mL (0-450); Osmolality Calculated 293 mOsm/kg (285-295); Potassium 4.7 mmol/L (3.5-5.1); Sodium 140 mmol/L (136-145); Total Protein 7.3 g/dL (6.4-8.2); Troponin I 24.5 ng/L (0.00-60.4)
[2024-03-20 10:25] LABS: Influenza A QL RT-PCR Negative (Negative); Influenza B QL RT-PCR Negative (Negative); RSV RNA, RT-PCR Negative (Negative); SARS-CoV-2 RNA PCR Negative (Negative)
[2024-03-23 03:04] LABS: Vitamin D 25 Hydroxy 95 ng/mL (30-100)
== END 2024-03-20 09:33 | disposition home or self-care (01) ==
LOC: CHSLAB 09:35
PROVIDERS: PCP Family Medicine; Visit Provider Nurse Practitioner
DX: I48.20 Chronic atrial fibrillation, unspecified (principal); E03.9 Hypothyroidism, unspecified; E55.9 Vitamin D deficiency, unspecified; R06.02 Shortness of breath; I51.7 Cardiomegaly; J81.1 Chronic pulmonary edema
CPT/HCPCS: 36415; 71046; 80053; 82306; 83880; 84443; 84484; 85025; 87637

== ENCOUNTER 2024-03-23 11:37 | Emergency (ER) | payer MEDICARE, SELFPAY ==
[2024-03-23 11:40] VITALS: BP 144/44; PULSE 69; RESP 18; TEMP 36.2; O2SAT 92
--- NOTE | 2024-03-23 11:59 | ED_ITS ---
HPI - Wound/Laceration General Chief Complaint: Head Injury Stated Complaint: fall, head injury Source: patient Mode of arrival: ambulatory Limitations: no limitations History of Present Illness HPI narrative: Patient is a 78-year-old female with significant past medical history presents today for a fall. Patient fell and her overall area the right side above her eyebrow. She has Vanessa 2 cm laceration her eyebrow. It is not currently bleeding and is a straight cut laceration not jagged. She did not lose consciousness Has no other injuries. Onset (ago): hour(s) Location: face Place: home Patient tetanus UTD: Yes Context: accidental Associated symptoms: none Related Data Home Medications Medication Instructions Recorded Confirmed cetirizine 10 mg capsule (Zyrtec) 10 mg PO DAILY PRN Congestion 07/07/20 03/23/24 zinc 50 mg tablet 50 mg PO DAILY 07/07/20 03/23/24 magnesium 500 mg tablet 15 mg PO DAILY 07/08/20 03/23/24 acetaminophen 500 mg tablet 1,000 mg PO Q6H PRN Pain 09/14/20 03/23/24 (Tylenol Extra Strength) cranberry-vit 1 cap PO QAM 09/14/20 03/23/24 C-B.coag-FOS-L.acid-L.rham 250 mg-30 mg-39.5 mg capsule (Probiotic Plus and Cranberry) mirjdzxk-wsic-sxhp 8 mg-folic 400 1 tablet PO QAM 09/14/20 03/23/24 mcg-K 50 mcg-lutein 300 mcg tablet (Multivitamin Women 50 Plus) alendronate 70 mg tablet 70 mg PO WEEKLY 07/26/22 03/23/24 losartan 25 mg tablet 25 mg PO DAILY 03/20/24 03/23/24 Allergies Allergy/AdvReac Type Severity Reaction Status Date / Time Sulfa (Sulfonamide Allergy Unknown Hives Verified 03/20/24 08:49 Antibiotics) Review of Systems Review of Systems: All systems reviewed & are unremarkable except as noted in HPI and below Constitutional: Constitutional: Reports as per HPI Eyes: Eyes: Reports as per HPI Comments: 2.5 cm laceration above right eyebrow ENT: Reports system reviewed and no additional complaints, except as documented Cardiovascular: Cardiovascular: Reports no additional cardiovascular complaints Respiratory: Respiratory: Reports no additional respiratory complaints Gastrointestinal: Gastrointestinal: Reports no additional gastrointestinal complaints Genitourinary: Genitourinary: Reports no additional female genitourinary complaints Musculoskeletal: Musculoskeletal: Reports no additional musculoskeletal complaints Integumentary/Breasts: Skin/Breast: Reports system reviewed and no additional complaints, except as docu Neurologic: Reports system reviewed and no additional complaints, except as documented Psychiatric: Psychiatric: Reports no additional psychiatric complaints Endocrine: Endocrine: Reports no additional endocrine complaints Hematologic/Lymphatic: Hematologic/Lymphatic: Reports no additional hematologic/lymphatic complaints Allergic/Immunologic: Allergic/Immunologic: Reports no additional allergic/immunologic complaints [facility] Past Medical History Medical History Cerebrovascular accident (2008) No residual deficit. Chronic atrial fibrillation Current use of shelter anticoagulation Degenerative joint disease History of deep venous thrombosis Hyperlipidemia Hypertension Nausea Osteoporosis Surgical History Surgical History History of hysterectomy History of left breast biopsy Benign pathology. History of tonsillectomy History of total left hip arthroplasty (09/23/20) S/P total hip arthroplasty Family History Family History Other Cancer of kidney Heart disease Social History Social History Social History: The patient is and lives in her own home in [place]. She has 3 grown children. Lifelong nonsmoker. No alcohol or illicit substance abuse. She designates her son, Kaushik Panchal, as her surrogate decision maker and she wishes to be a full code. Smoking status: Never smoker Alcohol intake: never Substance use: never Lack of Transportation: No Lack of Food: Never True Current Housing: I Have Housing Concerned About Future Housing: No Difficulty Paying Gas/Electric Bills: No Difficulty Paying for Meds: No Currently Unemployed: No Education: High School Diploma/GED Difficulty w/ Childcare or Family Care: No Living arrangements: alone Occupation/Education: retired Exam Const: General: healthy appearing Nutritional Appearance: well nourished Orientation/consciousness: patient oriented x3 HENMT: Head: normal to inspection Ears: external ears normal Face/Nose/Sinus: Normal external nose present Face and sinus: normal facial exam Eyes: Conjunctivae: conjunctivae normal Pupils: Equal, round and reactive pupils present EOM: EOMs intact bilaterally Neck: Neck: normal visual inspection Chest: Chest palpation & inspection: normal inspection of the chest Resp: Effort & Inspection: normal respiratory effort Cardio: Rate: regular rate Rhythm: regular rhythm GI: GI Palp: Yes Soft to palpation Back/Spine/Pelvis: Back: no CVA tenderness Skin: General skin exam: normal color Rashes: no rashes Wounds: wounds noted ( 2.5 cm laceration above right eyebrow) Neuro: General: patient oriented x3 Cranial nerves: Yes Nystagmus not present Speech: normal speech Extrem: General: normal to inspection Psych: Mental Status: mental status grossly normal Affect: normal affect Course Vital Signs Vital signs: Vital Signs Temperature 97.1 F L 03/23/24 11:40 Pulse Rate 69 03/23/24 11:40 Respiratory Rate 18 03/23/24 11:40 Blood Pressure 144/44 H 03/23/24 11:40 Pulse Oximetry 92 03/23/24 11:40 Oxygen Delivery Room Air 03/23/24 11:40 Temperature 97.1 F L 03/23/24 11:40 Pulse Rate 69 03/23/24 11:40 Respiratory Rate 18 03/23/24 11:40 Blood Pressure 144/44 H 03/23/24 11:40 Pulse Oximetry 92 03/23/24 11:40 Oxygen Delivery Room Air 03/23/24 11:40 MDM - Wound/Laceration MDM Narrative Medical decision making narrative: patient fell hit her right eye above the right eyebrow. She had a 2.5 cm laceration that is a history and age. She did not lose consciousness the oral bone is not edematous not erythematous she has no signs of contusion or fracture. No additional imaging needed. Will occlude the laceration shot. And given wound care instructions. Differential Diagnosis Differential diagnosis: Likely laceration Medical Records Attestation: I reviewed the patient's medical records. Lab Data Attestation: I reviewed the patient's lab results. Discharge Plan Discharge Clinical Impression: Laceration, Open wound of skin Patient Disposition: Home, Self-Care Condition: Stable Instructions: Facial Laceration (ED) Prescriptions: No Action zinc 50 mg tablet 50 mg PO DAILY Zyrtec 10 mg capsule 10 mg PO DAILY PRN (Reason: Congestion) magnesium 500 mg tablet 15 mg PO DAILY alendronate 70 mg tablet 70 mg PO WEEKLY losartan 25 mg tablet 25 mg PO DAILY Multivitamin Women 50 Plus 8 mg iron-400 mcg-300 mcg Tablet 1 tablet PO QAM Probiotic Plus and Cranberry 250-30-39.5 mg Capsule 1 cap PO QAM acetaminophen [Tylenol Extra Strength] 500 mg Tablet 1,000 mg PO Q6H PRN (Reason: Pain) Hold Instructions: Resume on 10/22/20. cholecalciferol (vitamin D3) 1,250 mcg (50,000 unit) tablet 50,000 unit PO WEEKLY Qty: 7 0RF Patient Comments: TAKES ON MONDAYS atorvastatin 20 mg tablet See Rx Instructions .ROUTE .COMPLEX Qty: 90 3RF Dose Instruction: TAKE 1 TABLET BY MOUTH AT BEDTIME Rx Instructions: TAKE 1 TABLET BY MOUTH AT BEDTIME Xarelto 20 mg tablet See Rx Instructions .ROUTE .COMPLEX Qty: 90 2RF Dose Instruction: TAKE 1 TABLET DAILY MUST ADMINISTER WITH EVENING MEAL Rx Instructions: TAKE 1 TABLET DAILY MUST ADMINISTER WITH EVENING MEAL omeprazole 20 mg capsule,delayed release(DR/EC) See Rx Instructions .ROUTE .COMPLEX Qty: 90 3RF Dose Instruction: TAKE 1 CAPSULE BY MOUTH DAILY Rx Instructions: TAKE 1 CAPSULE BY MOUTH DAILY metoprolol tartrate 50 mg tablet See Rx Instructions .ROUTE .COMPLEX Qty: 90 3RF Dose Instruction: TAKE 1/2 TABLET BY MOUTH IN THE MORNING AND 1/2 TABLET AT BEDTIME Rx Instructions: TAKE 1/2 TABLET BY MOUTH IN THE MORNING AND 1/2 TABLET AT BEDTIME torsemide 20 mg tablet 20 mg PO QAM Qty: 90 0RF Follow-up/Referrals: UNKNOWN,DOCTOR [Primary Care Provider] - Time of Disposition: 12:04
== END 2024-03-23 12:16 | disposition home or self-care (01) ==
LOC: CHSED 12:09
PROVIDERS: Emergency Provider Family Medicine; PCP Nurse Practitioner Family
DX: S01.111A Laceration without foreign body of right eyelid and periocular area, initial encounter (principal); I48.20 Chronic atrial fibrillation, unspecified; E78.5 Hyperlipidemia, unspecified; I10 Essential (primary) hypertension; Z79.899 Other long term (current) drug therapy; Z86.73 Personal history of transient ischemic attack (TIA), and cerebral infarction without residual deficits; W19.XXXA Unspecified fall, initial encounter; Y92.009 Unspecified place in unspecified non-institutional (private) residence as the place of occurrence of the external cause
CPT/HCPCS: 12011; 99283

== ENCOUNTER 2024-04-05 13:17 | Outpatient (CLI) | payer MEDICARE, SELFPAY ==
[2024-04-05 14:07] LABS: NT Pro B Type Natriuretic Pept 5904 pg/mL (0-450)
== END 2024-04-05 13:18 | disposition home or self-care (01) ==
LOC: CHSLAB 13:18
PROVIDERS: PCP Nurse Practitioner Family; Visit Provider Nurse Practitioner Family
DX: R79.89 Other specified abnormal findings of blood chemistry (principal); R06.00 Dyspnea, unspecified
CPT/HCPCS: 36415; 83880

== ENCOUNTER 2024-09-09 11:58 | Outpatient (CLI) | payer MEDICARE, SELFPAY ==
--- OUTSIDE RECORDS SUMMARY | 2024-09-09 12:12 | XMS_ITS | Referral Summary ---
Author Organization [facility] Address [address] [place] [address] Care Team Providers Care Gin Inspector Name Role Phone Shakila Salomon NP Primary Care Provider [phone] Encounters Date Type Department Care Team Description 06/26/[address] [facility] Medical Group Cardiology [address] [facility] [address] [place] [address] [address] Bolaños MD 06/26/2024 Results Follow-Up [facility] Medical Group Cardiology [address] [facility] [address] [place] [address] [address] Bolaños MD Factor X activity from Last 3 Months Allergies Active Allergy Reactions Criticality Noted Date Comments Sulfa (Sulfonamide Antibiotics) Hives,Rash Medium Medications multivitamin tablet daily Active metoprolol (LOPRESSOR) 50 mg tablet Take 0.5 tablets (25 mg total) by mouth 2 (two) times a day Active ergocalciferol (VITAMIN D) 50,000 unit capsule 1 capsule (50,000 Units total) every 30 (thirty) days Active atorvastatin (LIPITOR) 20 mg tablet daily Active magnesium oxide (MAG-OX) 250 mg (150.8 mg elemental) tabletIndication s:hypomagnesemia 1 tablet (250 mg total) daily Active acetaminophen 325 mg capsule Take by mouth as needed Active alendronate (FOSAMAX) 70 mg tablet 10/19/2021 Active omeprazole (PriLOSEC) 20 mg capsule Take by mouth daily 11/18/2022 Active zinc gluconate 50 mg tablet Take 1 tablet (50 mg total) by mouth daily Active cetirizine 10 mg capsule Take by mouth Active cranberry ctnq-C-eyljawno coag 250-30-15 mg tablet Take by mouth Active torsemide (DEMADEX) 20 mg tablet Take 1 tablet (20 mg total) by mouth daily 90 tablet 3 04/10/2024 Active apixaban (ELIQUIS) 5 mg tablet Take 1 tablet (5 mg total) by mouth 2 (two) times a day 180 tablet 3 06/26/2024 Active losartan (COZAAR) 25 mg tabletIndication s:Mild left ventricular systolic dysfunction TAKE 1 TABLET BY MOUTH DAILY 90 tablet 1 07/29/2024 Active Active Problems Problem Noted Date Diagnosed Date OROZCO (dyspnea on exertion) 04/10/2024 Atypical chest pain 04/10/2024 Pulmonary hypertension 04/10/2024 Medication monitoring encounter 11/23/2021 Leg cramps 11/23/2021 Leg swelling 11/10/2020 History of stroke 11/10/2020 Persistent atrial fibrillation 10/29/2019 Chronic anticoagulation 10/29/2019 Essential hypertension 10/29/2019 Hypercholesteremia 10/29/2019 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 Not on file Not on file Last Filed Vital Signs Vital Sign Reading Time Taken Comments Blood Pressure 140/62 05/13/2024 9:17 AM GARMENT LINER Pulse 53 05/13/2024 9:17 AM GARMENT LINER Temperature 36.1 C (96.9 F) 08/03/2017 8:16 AM CDT Respiratory Rate 15 02/26/2020 9:39 AM GARMENT LINER Oxygen Saturation 97% 04/10/2024 1:08 PM GARMENT LINER Inhaled Oxygen Concentration - - Weight 69.9 kg (154 lb) 04/10/2024 1:08 PM GARMENT LINER Height 167.6 cm (5' 6 ) 04/10/2024 1:08 PM GARMENT LINER Body Mass Index 24.86 04/10/2024 1:08 PM GARMENT LINER Plan of Treatment Not on file Insurance [employer] MEDICARE SUPPLEMENT INSURANCE MEDICARE AETNA SENIOR SUPPLEMENT MEDICARE AETNA SENIOR SUPPLEMENT MEDICARE AETNA SENIOR SUPPLEMENT Care Teams Gin Inspector Relationship Specialty Start Date End Date Shakila Salomon NP [address] [place] [address] PCP - General Nurse Practitioner 10/29/19
--- OUTSIDE RECORDS SUMMARY | 2024-09-09 12:12 | XMS_ITS | Clinical Summary ---
Author Organization [facility] Address [facility] [place] [address] Care Team Providers Care Rotary Engine Assembler Name Role Phone Unavailable Primary Care Provider Unavailabl e Social History Tobacco Use Types Packs/Day Years Used Date Smoking Tobacco: Never Assessed Comments Unknown Sex and Gender Information Value Date Recorded Sex Assigned at Not on file Legal Sex Female 5:58 PM ANIMAL HANDLER Gender Identity Not on file Sexual Orientation Not on file Plan of Treatment Health Maintenance Due Date Last Done Comments Hepatitis C 1963 DTaP, Tdap and Td Vaccines ( 1 - Tdap) 1965 Pneumococcal Vaccine: 50+ Ye ars (1 of 1 - PCV) 1996 Zoster Vaccines (1 of 2) 1996 Dexa Scan (General) 10/17/2011 RSV Immunization or 60+ Years (1 - 1-dose 75+ series) 2021 COVID-19 Vaccine (2023-2 5 season) 2023 Meningococcal B Vaccine Aged Out No l onger eligible based on patient's age to complete this topic Meningococcal Vaccine Aged Out No lars remi eligible based on patient's age to complete this topic RSV Immunizations Under 20 Months Aged Out No longer eligible based on patient's age to complete this topic
--- OUTSIDE RECORDS SUMMARY | 2024-09-09 12:12 | XMS_ITS | Clinical Summary ---
Author Organization [facility] Address [address] [place] [address] Care Team Providers Care Tunneling Machine Operator Name Role Phone Shakila Salomon NP Primary Care Provider [phone] Allergies Active Allergy Reactions Criticality Noted Date [...] mg capsule Take by mouth Active cranberry gqgt-J-vexumiqw coag 250-30-15 mg tablet Take by mouth [...] veins of both lower extremi ties 10/29/2019 Encounters Date Type Department Care Team Description 06/26/2024 Telephone [facility] Medical Group Cardiology [address] [facility] [address] [place] [address] [address] Bolaños MD 06/26/2024 Results Follow-Up [facility] Medical Group Cardiology [address] [facility] [address], [place] [address] [address] Bolaños MD Factor X activity from Last 3 Months Surgical History Surgery Date Site/Laterality Comments HYSTERECTOMY HIP SURGERY 09/23/2020 Medical History Medical History Date Comments Stroke (HCC) 2009 Persistent atrial fibrillation (HCC) 2009 Hypercholesterolemia Hypertension Family History Medical History Relation Name Comments Alive and well Brother old age Father age 90 Pneumonia Mother age 92 Heart attack Sister age 29 Relation Name Status Comments Brother Alive Father (Age 90) Mother (Age 92) Sister Social History Tobacco Use Types Packs/Day Years [...] on file Legal Sex Female 4:16 AM RADIO EQUIPMENT REPAIRER Gender Identity Female 12/20/2019 10:50 AM CDT Sexual Orientation Not on file 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 Not on file Not on file Obstetrics History Last Filed Vital Signs Vital Sign Reading Time Taken Comments Blood Pressure 140/62 05/13/2024 9:17 AM RADIO EQUIPMENT REPAIRER Pulse 53 05/13/2024 9:17 AM RADIO EQUIPMENT REPAIRER Temperature 36.1 C (96.9 F) 08/03/2017 8:16 AM CDT Respiratory Rate 15 02/26/2020 9:39 AM RADIO EQUIPMENT REPAIRER Oxygen Saturation 97% 04/10/2024 1:08 PM RADIO EQUIPMENT REPAIRER Inhaled Oxygen Concentration - - Weight 69.9 kg (154 lb) 04/10/2024 1:08 PM RADIO EQUIPMENT REPAIRER Height 167.6 cm (5' 6 ) 04/10/2024 1:08 PM RADIO EQUIPMENT REPAIRER Body Mass Index 24.86 04/10/2024 1:08 PM RADIO EQUIPMENT REPAIRER Plan of Treatment Health Maintenance Due Date Last Done Comments Depression Screening 1945 Hepatitis C Screening 1945 Osteoporosis Screening-Bone Density Scan 1945 DTaP/Tdap/Td Vaccine (1 - Tdap) 1957 Hepatitis B Screening 1964 Pneumococcal vaccine 65+ (1 of 1 - PCV) 1996 Zoster Vaccine (1 of 2) 1996 Well Visit 65+ 10/17/2011 Fall Risk Assessment 02/25/2021 02/26/2020 Influenza Vaccine (Season Ended) 2024 01/29/20 20 Insurance [employer] MEDICARE SUPPLEMENT INSURANCE MEDICARE AET SENIOR SUPPLEMENT ([place]) [address] [address] MEDICARE T SENIOR SUPPLEMENT MEDICARE AETNA SENIOR SUPPLEMENT Care Teams Tunneling Machine Operator Relationship Specialty Start Date End Date Shakila Salomon NP [address] [place] [address] PCP - General Nurse Practitioner 10/29/19
[2024-09-10 16:38] LABS: Vitamin D 25 Hydroxy 78 ng/mL (30-100)
== END 2024-09-09 11:59 | disposition home or self-care (01) ==
LOC: CHSLAB 12:00
PROVIDERS: PCP Nurse Practitioner Family; Visit Provider Obstetrics & Gynecology Gynecology
DX: E55.9 Vitamin D deficiency, unspecified (principal)
CPT/HCPCS: 36415; 82306

== ENCOUNTER 2025-01-13 10:24 | Outpatient (CLI) | payer MEDICARE, SELFPAY ==
--- NOTE | ~2025-01-13 | MM_ITS ---
EXAMINATION: MM screening armen BI w jade HISTORY: Screening TECHNIQUE: Craniocaudal and mediolateral oblique 3-D tomosynthesis images were obtained and synthetic 2-D images were generated. CAD analysis was submitted and interpreted. COMPARISON: Comparison to multiple prior studies sequentially, with oldest reviewed study dated , 08/07/2018 BREAST PARENCHYMAL COMPOSITION: There are scattered areas of fibroglandular density. FINDINGS: There is no evidence of suspicious mass, calcification, or architectural distortion to suggest malignancy in either breast. IMPRESSION: 1. No mammographic evidence of malignancy. 2. Recommend routine screening mammography in one year. BI-RADS Category 1: Negative Reviewed, dictated and finalized at location B.
--- OUTSIDE RECORDS SUMMARY | 2025-01-13 11:35 | XMS_ITS | Clinical Summary ---
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 10/18/2024 OROZCO (dyspnea on exertion) 04/10/2024 Atypical chest pain 04/10/2024 Pulmonary hypertension 04/10/2024 Medication monitoring encounter 11/23/2021 Leg cramps 11/23/2021 Leg swelling 11/10/2020 History of stroke 11/10/2020 Persistent atrial fibrillation 10/29/2019 Chronic anticoagulation 10/29/2019 Essential hypertension 10/29/2019 Hypercholesteremia 10/29/2019 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 10/29/2019 Encounters Date Type Department Care Team Description 12/02/2024 Results Follow-Up [facility] Medical Group Cardiology at [address] [place] [address] Heart Morphology W Contrast 11/29/2024 10:54 AM CDT - 11/29/2024 11:59 PM CDT Hospital Encounter [facility] [address] [place] [id number] Persistent atrial fibrillation (HCC); Thrombus of left atrial appendage Discharge Disposition: Discharge to home or self care 10/18/2024 11:15 AM CDT Office Visit [facility] Medical Group Cardiology [address] [facility] [address] [place] [address] Lane Bolaños MD Coronary artery disease involving modoc coronary artery of modoc heart without angina pectoris (Primary Dx); Chronic anticoagulation; Persistent atrial fibrillation (HCC); Pulmonary hypertension (HCC); Essential hypertension; Thrombus of left atrial appendage from Last 3 Months Surgical History Surgery Date Site/Laterality Comments HYSTERECTOMY HIP SURGERY 09/23/2020 JOINT REPLACEMENT 2020 Medical History Medical History Date Comments Stroke (HCC) 2008 Persistent atrial fibrillation (HCC) 2008 Hypercholesterolemia Hypertension Family History Medical History Relation Name Comments Alive and well Brother 1 Cancer Brother 2 Irvin Clotting disorder Brother 2 Irvin Cancer Brother 3 Lannon old age Father age 90 Clotting disorder Mother Karyn [place] Memory loss Mother Karyn [place] Pneumonia Mother Karyn [place] age 9 2 Heart attack Sister Sherlyn age 29 Relation Name Status Comments Brother 1 Alive Brother 2 Irvin Alive Brother 3 Lannon Alive Father (Age 90) Mother Karyn [place] (Age 92) Sister Sherlyn Social History Tobacco Use Types Packs/Day Years [...] on file Legal Sex Female 4:16 AM WAYS OPERATOR Gender Identity Female 12/20/2019 10:50 AM CDT Sexual Orientation Not on file 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 Not on file Not on file Obstetrics History Last Filed Vital Signs Vital Sign Reading Time Taken Comments Blood Pressure 120/56 10/18/2024 11:07 AM CDT Pulse 68 10/18/2024 11:07 AM CDT Temperature 36.1 C (96.9 F) 08/03/2017 8:16 AM CDT Respiratory Rate 15 02/26/2020 9:39 AM WAYS OPERATOR Oxygen Saturation 98% 10/18/2024 11:07 AM CDT Inhaled Oxygen Concentration - - Weight 73 kg (161 lb) 10/18/2024 11:07 AM CDT Height 167.6 cm (5' 6) 10/18/2024 11:07 AM CDT Body Mass Index 25.99 10/18/2024 11:07 AM CDT Plan of Treatment Health Maintenance Due Date Last Done Comments Depression Screening 1945 Hepatitis C Screening 1945 Osteoporosis Screening-Bone Density Scan 1946 DTaP/Tdap/Td Vaccine (1 - Tdap) 1957 Hepatitis B Screening 1964 Pneumococcal vaccine 65+ (1 of 1 - PCV) 1996 Zoster Vaccine (1 of 2) 1996 Well Visit 65+ 10/17/2011 Fall Risk Assessment 02/25/2021 02/26/2020 Influenza Vaccine (#1) 2024 01/29/2020 Procedures Procedure Name Priority Date/Time Associated Diagnosis Comments CT HEART MORPHOLOGY W CONTRAST Schedule Routine, Read Routine (OP Routine) 11/29/2024 11:33 AM CDT Persistent atrial fibrillation (HCC) Thrombus of left atrial appendage from Last 3 Months Results * CT Heart Morphology W Contrast (11/29/2024 11:33 AM CDT) Anatomical Region Laterality Modality Chest N/A Computed Tomogra phy 11/29/2024 11:5 2 AM CDT Impressions 11/29/2024 11:52 AM CDT 1. Decrease in size of left atrial appendage thrombus. Previously this measured 3.7 x 2.9 cm now measures 1.9 x 1.6 cm. 2. No change in biatrial enlargement. Protocol note: If a follow-up CT is requested for evaluation of the appendage thrombus, this could be performed with flash mode, delayed 45 seconds with a repeat flash mode. ECG gating is not required. Electronically signed by: Will Craig M.D. Narrative 11/29/2024 11:52 AM CDT Examination: CT of the heart with intravenous contrast HISTORY: Evaluate for persistent left atrial appendage thrombus. Patient has history of atrial fibrillation. TECHNIQUE: Standard ECG gating CT angiogram of the heart was performed in arterial and venous phase. Images were obtained with a total of 100 mL of Optiray 350 intravenous contrast. Images were sent to three-dimensional workstation for further evaluation. Comparison is made to prior study of 05/13/2024. No supraclavicular, axillary or mediastinal lymphadenopathy is seen. Trace pericardial fluid is noted. There is no pleural effusion. Again seen is moderate cardiac enlargement with particular biatrial enlargement noted. Reflux of contrast is seen into the intrahepatic inferior vena cava with mild hepatomegaly. Mild cortical scarring is seen in the left kidney without change. There is no pulmonary embolism. The main pulmonary artery is mildly dilated but unchanged when compared to the prior study with a short axis measurement of 3.8 cm. The aorta is normal in caliber. Mild basilar atelectasis is noted with some areas of air trapping on this slightly exhalation phase study. Again seen is a left atrial appendage thrombus. This is smaller than it was on the prior study with a recanalization of a majority of the thrombus. On the prior study the thrombus measured approximately 3.7 x 2.9 cm. On today's study the thrombus just involves the tip of the appendix and measures about 1.9 x 1.6 cm. Again seen are normal origin of the coronary arteries with mild left anterior descending coronary artery atherosclerosis. The bone windows are normal. Procedure Note Will Craig MD - 11/29/2024 Examination: CT of the heart with intravenous contrast HISTORY: Evaluate for persistent left atrial appendage thrombus. Patient has history of atrial fibrillation. TECHNIQUE: Standard ECG gating CT angiogram of the heart was performed in arterial and venous phase. Images were obtained with a total of 100 mL of Optiray 350 intravenous contrast. Images were sent to three-dimensional workstation for further evaluation. Comparison is made to prior study of 05/13/2024. No supraclavicular, axillary or mediastinal lymphadenopathy is seen. Trace pericardial fluid is noted. There is no pleural effusion. Again seen is moderate cardiac enlargement with particular biatrial enlargement noted. Reflux of contrast is seen into the intrahepatic inferior vena cava with mild hepatomegaly. Mild cortical scarring is seen in the left kidney without change. There is no pulmonary embolism. The main pulmonary artery is mildly dilated but unchanged when compared to the prior study with a short axis measurement of 3.8 cm. The aorta is normal in caliber. Mild basilar atelectasis is noted with some areas of air trapping on this slightly exhalation phase study. Again seen is a left atrial appendage thrombus. This is smaller than it was on the prior study with a recanalization of a majority of the thrombus. On the prior study the thrombus measured approximately 3.7 x 2.9 cm. On today's study the thrombus just involves the tip of the appendix and measures about 1.9 x 1.6 cm. Again seen are normal origin of the coronary arteries with mild left anterior descending coronary artery atherosclerosis. The bone windows are normal. IMPRESSION: 1. Decrease in size of left atrial appendage thrombus. Previously this measured 3.7 x 2.9 cm now measures 1.9 x 1.6 cm. 2. No change in biatrial enlargement. Protocol note: If a follow-up CT is requested for evaluation of the appendage thrombus, this could be performed with flash mode, delayed 45 seconds with a repeat flash mode. ECG gating is not required. Electronically signed by: Will Craig M.D. us Lane Bolaños MD IMG CT PROCEDURES Final R esult from Last 3 Months Insurance [employer] MEDICARE SUPPLEMENT INSURANCE MEDICARE AETNA SENIOR SUPPLEMENT T SENIOR SUPPLEMENT MEDICARE AET SENIOR SUPPLEMENT Care Teams Restaurant Managing Partner Relationship Specialty Start Date End Date Shakila Salomon NP [address] [place] [address] PCP - General Nurse Practitioner 10/29/19
--- OUTSIDE RECORDS SUMMARY | 2025-01-13 11:35 | XMS_ITS | Clinical Summary ---
Author Organization [facility] Address [facility] [place] [address] Care Team Providers Care Mounter Automatic Name Role Phone Unavailable Primary Care Provider Unavailabl e Social History Tobacco Use Types Packs/Day Years Used Date Smoking Tobacco: Never Assessed Comments Unknown Sex and Gender Information Value Date Recorded Sex Assigned at Not on file Legal Sex Female 5:58 PM PRIMARY TEACHER Gender Identity Not on file Sexual Orientation [...] series) 2021 COVID-19 Vaccine (2023-2 5 season) 2024 Meningococcal B Vaccine Aged Out No l onger eligible based on patient's age to complete this topic Meningococcal Vaccine Aged Out No lars remi eligible based on patient's age to complete this topic RSV Immunizations Under 20 Months Aged Out No longer eligible based on patient's age to complete this topic
== END 2025-01-13 10:25 | disposition home or self-care (01) ==
PROVIDERS: PCP Nurse Practitioner Family; Visit Provider Obstetrics & Gynecology Gynecology
DX: Z12.31 Encounter for screening mammogram for malignant neoplasm of breast (principal)
CPT/HCPCS: 77063; 77067